=== PATIENT | male | born 1940 | race Caucasian/White ===

== ENCOUNTER 2017-05-27 08:48 | Day surgery (SDC) | payer MEDICARE, BC ==
[~2017-05-27] VITALS: Ht 182.9 cm; Wt 100.0 kg
[2017-05-27] MEDS ORDERED: NORVASC5 MG PO (10:42)
[2017-05-27 10:45] LABS: BASOPHILS 0.8 % (0-2); EOSINOPHILS 0 % (0-7); HEMATOCRIT 34.7 % (42.0-54.0); HEMOGLOBIN 11.8 g/dL (13.5-17.5); IMMATURE GRANULOCYTES 0.2 % (0-5); LYMPHOCYTES 32.8 % (15-50); MCH 29.6 pg (26.0-34.0); MEAN PLATELET VOLUME 8.8 fL (7.4-10.4); MONOCYTES 11.1 % (2-11); NEUTROPHILS 55.1 % (40-80); PLATELET COUNT 173 10x3/uL (130-400); RBC 3.99 10x6/uL (4.20-6.10); RDW 13.1 % (11.5-14.5); WBC 4.9 10x3/uL (4.8-10.8)
[2017-05-27 10:53] VITALS: BP 158/83; Ht 182.9 cm; Wt 100.0 kg
[2017-05-27 10:55] LABS: APTT 31.1 SECONDS (22.8-39.4); INR 1.05 (0.85-1.17); PROTIME 13.3 SECONDS (11.6-15.0)
[2017-05-27 12:03] LABS: ANION GAP 13.7 mmol/L (8-16); CALCIUM 9.4 mg/dL (8.5-10.1); CARBON DIOXIDE 24.1 mmol/L (21.0-32.0); CREATININE - SERUM 3.9 mg/dL (0.6-1.3); POTASSIUM - SERUM 4.8 mmol/L (3.5-5.1)
[2017-05-27] MEDS ORDERED: HYDROCODON-ACE1 EAC7 PO (13:20)
--- NOTE | 2017-05-27 14:05 | NUR ---
PATIENT SITS UP ON SIDE OF BED AND WALKS AROUND ROOM WITH NURSE STANDING BY. PATIENT DENIES DIZZINESS. PATIENT SITS BACK DOWN ON SIDE OF BED AND STATES WANTS TO SIT FOR A WHILE. RIGHT HAND PIV DC'D WITH TIP INTACT. THIS NURSE URGES PATIENT TO CALL FOR ASSISTANCE WHEN READY TO GET DRESSED. EDUCATION GIVEN ABOUT NEED TO KEEP SLING ON ARM AT ALL TIMES DUE TO NERVE BLOCK. STATES UNDERSTANDING.
--- NOTE | 2017-05-27 14:15 | NUR ---
THIS NURSE ENTERS ROOM AND PATIENT IS STANDING BY BED AND TRYING TO GET DRESSED. HAS LEFT ARM SLING OFF, TRYING TO GET SHIRT ON. THIS NURSE IMMEDIATELY SUPPORTS LEFT ARM AND ASSISTS PATIENT IN PUTTING SLING BACK ON. ASSISTED PATIENT TO GET CLOTHES ON OVER THE SLING. PATIENT SITTING IN CHAIR IN ROOM. AWAITING EX- TO ARRIVE TO PROVIDE DC TRANSPORTATION
--- NOTE | 2017-05-27 14:45 | NUR ---
PATIENT SITTING IN CHAIR IN ROOM, AWAKE, ALERT, DENIES COMPLAINTS. AWAITING EX- TO ARRIVE TO PROVIDE TRANSPORTATION HOME
--- NOTE | 2017-05-27 15:07 | NUR ---
DISCHARGED HOME VIA WHEELCHAIR TO PRIVATE VEHICLE WITH EX-
--- NOTE | 2017-06-20 15:11 | OP ---
PATIENT NAME: BRAD PINEDO MEDICAL RECORD: [id number] :40 [facility] DATE: SURGEON: ARCHIE VANEGAS MD DATE OF OPERATION: 05/27/2017 REFERRED BY: Bhavani uD MD PREOPERATIVE DIAGNOSIS: Chronic kidney disease stage IV. POSTOPERATIVE DIAGNOSIS: Chronic kidney disease stage IV. OPERATION PERFORMED: Creation of a left wrist Madelaine type radiocephalic arteriovenous fistula. SURGEON: Archie Vanegas MD ANESTHESIA: Regional nerve block plus TIVA, per CLAY BURNER. PREOPERATIVE NOTE: Mr. Pinedo is a 77-year-old white male from [place] who has chronic kidney disease and is anticipated he may need to begin dialysis in the next year. He was referred to me for dialysis access and I brought him to the OR today as an outpatient to create a fistula in the left arm. He has good veins and large vessels on ultrasound, I believe he is a good candidate for radiocephalic fistula. DESCRIPTION OF PROCEDURE: With the patient under anesthesia in supine position, he was prepped and draped in sterile manner. Topical nitroglycerin ointment was applied to the left arm and forearm, and a [place] drain was used as a proximal venous tourniquet. I examined him with duplex ultrasound and confirmed the cephalic vein to be patent from the wrist to the deltopectoral groove. I then made a longitudinal incision along the wrist and exposed the vein and artery. The vein was dissected from the surrounding tissues and treated with topical papaverine. It was dilated hydrostatically and closed distally with a clip, divided and beveled and flushed with heparinized saline and generally prepared for anastomosis. The artery was large, about 6 mm in diameter, perhaps 7. It was controlled with doubly looped Silastic tapes. It was occluded and an arteriotomy made through which heparinized saline was injected proximally and distally and an end-to-side of vein to artery anastomosis was then performed with running 6-0 Prolene. When completed and the occluding loops were loosened, excellent flow developed immediately in the new fistula and the suture line proved to be hemostatic. Excellent flow was established in the fistula. There was a good strong palpable thrill and good Doppler flow signals. The wound was irrigated with Ancef and gentamicin solution, was infiltrated with 0.25% Marcaine without epinephrine. I did use some Fibrillar to help achieve hemostasis under the flaps and I did note during the procedure, the patient had a little oozing tendency. Discrete electrocautery was used to achieve hemostasis during the procedure. The wound was closed with interrupted 3-0 Vicryl inverted sutures. The skin was closed with running intracuticular 4-0 Monocryl and Dermabond glue. The incision was dressed with Maxorb Ag, Tegaderm and Cavilon skin prep. He was awakened and taken to the recovery room with a good thrill and pulsation and audible bruit over his fistula. PLAN: I will plan for him to go home today. He will return to see me in first week of June, which is a little longer than I usually would wait to see a postop patient, but we are in the holiday season, Boy as next week, etc. OPERATIVE REPORT [id number] BRAD PINEDO I have given him my personal cell number, he can call me if he has any problems or concerns or questions between now and his appointment time. I am encouraging him to remove his own dressing this weekend or first of next week and after that to wash the incision site daily with soap and water. He is to resume his usual home diet and medications and activities as tolerated. During the procedure, there was no blood loss. All sponges, instruments and needles were accounted for. No specimen was submitted for histopathology and no drain was used. TRANSINT:[id number] Voice Confirmation ID: [id number] DOCUMENT ID: [id number] ARCHIE VANEGAS MD at 1511 CC: BHAVANI DU MD [id number] DICTATION DATE: 05/27/17 1332 JUNIOR ACCOUNTANT BOOKKEEPER: 05/27/17 1428 [facility] 05/27/17 [facility] [address] [place] [address]
== END 2017-05-27 15:07 | disposition home or self-care (01) ==
LOC: D.OPS 08:48
PROVIDERS: Surgery
DX: I12.9 Hypertensive chronic kidney disease with stage 1 through stage 4 chronic kidney disease, or unspecified chronic kidney disease (principal); N18.4 Chronic kidney disease, stage 4 (severe); Z01.812 Encounter for preprocedural laboratory examination

== ENCOUNTER → 2019-06-24 10:46 | Outpatient (CLI) | payer MEDICARE, BC ==
[2017-05-27 10:53] VITALS: BMI 29.9
--- NOTE | ~2019-06-24 | EC ---
PATIENT:BRAD PINEDO DATE OF SERVICE: 06/24/19 SEX: M MEDICAL RECORD: [id number] DATE OF : 40 LOCATION:[facility] AGE OF PATIENT: 79 ADMISSION DATE: 06/24/19 REFERRING PHYSICIAN: INTERPRETING PHYSICIAN: MALLY MARTINEZ MD ECHOCARDIOGRAM REPORT ECHO CHARGES 4 ECHO COMPLETE Date: 06/24/19 CLINICAL DIAGNOSIS: CAD/ANGINA/DYSPNEA/HTN ECHOCARDIOGRAPHIC MEASUREMENTS (adult normal given) AC root (d.<3.7cm) 3.6 cm LV Septum d (<1.2 cm> 1.5 cm Valve Excursion 1.7 cm LV Septum (systole) 1.2 cm Left Atria (s.<4.0cm> 3.6 cm LVPW d(<1.2cm) 1.6 cm RV (d.<2.3cm) 4.3 cm LVPW (sytole) 1.87 cm LV diastole(<5.6CM) 4.8 cm MV E-F(>70mm/sec) cm LV systole 2.8 cm LVOT Diameter 1.9 cm MV exc.(>10mm) 1.3 cm Est.ejection fraction (50-75%) % DOPPLER: LVIT cm/sec A 101.0cm/sec E 80.0 cm/sec LA cm/sec RVSP 36 mmHg LVOT 106 cm/sec AOP1/2T m/s Asc. Ao 130 cm/sec RVOT 98 cm/sec RA cm/sec PA 112 cm/sec AV Gradient Peak 6.72 mmHg AV Mean 3.60 mmHg AV Area 2.0 cm MV Gradient Peak 4.45 mmHg MV Mean 1.89 mmHg MV Area cm COMMENTS: Marketing Information Coordinator: Heather FUENTES Rn Complex Care: 1 Dr. Martinez TAPE# PACS Pericardial Effusion N DATE OF SERVICE: 06/24/2019 FINDINGS: 1. Left ventricular chamber size is within normal limits. Left ventricular systolic function is normal. Overall ejection fraction estimated at 50% to 55%. 2. Left atrium is within normal limits at 3.6 cm. Right atrium and right ventricular chamber sizes are mildly dilated. 3. Valvular structures have normal structure and motion. 4. Doppler interrogation reveals mild aortic insufficiency, mild mitral regurgitation, mild tricuspid regurgitation, no other valvular insufficiency or ECHOCARDIOGRAM REPORT [id number] BRAD PINEDO stenosis. Pulmonary systolic pressure estimated 36 mmHg. 5. No evidence of pericardial effusion or left ventricular thrombus. TRANSINT:[id number] Voice Confirmation ID: [id number] DOCUMENT ID: [id number] MALLY MARTINEZ MD CC: [id number] DICTATION DATE: 06/28/191650 BUSINESS ANALYST PROJECT MANAGER: 06/28/192146 DEP CLI 06/24/19 [place] [id number] [place] [id number]
[~2019-06-24 10:46] MED LIST: HYDROCODON-ACE1 EAC7 PO; NORVASC5 MG PO
== END | disposition home or self-care (01) ==
LOC: D.HCCECHO 10:46
PROVIDERS: ATTEND Internal Medicine Cardiovascular Disease
DX: I25.10 Atherosclerotic heart disease of native coronary artery without angina pectoris (principal); I20.9 Angina pectoris, unspecified

== ENCOUNTER 2019-07-07 09:02 | Inpatient (IN) | payer MEDICARE, BC ==
[~2019-07-07] VITALS: Ht 180.3 cm; Wt 90.9 kg
--- NOTE | ~2019-07-07 | DS ---
PATIENT:BRAD PINEDO :40 MEDICAL RECORD: [id number] DISCHARGE SUMMARY ADMISSION DATE: 07/08/19 DISCHARGE DATE: 07/09/19 DATE OF SERVICE: 07/09/2019 DIAGNOSES: 1. Unstable angina. 2. Coronary artery disease. 3. PTCA stent left circumflex and right coronary artery this admission with concomitant disease of left anterior descending. 4. Hypertension. 5. Hyperlipidemia. 6. Renal insufficiency. HOSPITAL COURSE: Mr. Pinedo presents with unstable angina, non-Q-wave myocardial infarction, found to have severe 3-vessel coronary artery disease, underwent PTCA stent of the left circumflex and RCA. He was discharged home with the addition of aspirin and Plavix to his medical regimen. We will follow up with [facility] for PTCA stent of the LAD in the near future due to untreated hyperlipidemia, also sent home with Pravachol. TRANSINT:[id number] Voice Confirmation ID: [id number] DOCUMENT ID: [id number] MALLY THORNTON MD CC: [id number] DICTATION DATE: 07/09/19 1359 BI MANAGER: 07/10/19 0153 DIS IN 07/09/[address] [facility] [address] [place] [address]
--- NOTE | ~2019-07-07 | HEMODYNAMI ---
PATIENT:BRAD PINEDO MEDICAL RECORD: [id number] : 40 [address] [id number] ADMISSION DATE: 07/07/19 Generatedon:07/08/201912:57 Patient name: BRAD PINEDO Patient #: [id number] SSN: [id number] : 1940 Date of study: 07/08/2019 Page: Of Hemodynamic Procedure Report Patient Data Patient Demographics Procedure consent was obtained First Name: BRAD Gender: Male Last Name: KHRIS : 1940 Patient #: [id number] Age: 79 year(s) Race: Unknown SSN: [id number] Additional ID: [id number] Contact details Address: [address] [place] [address] State: [place] City: [place] Zip code: [address] Admission Admission Data Admission Date: 07/07/2019 Admission Time: 9:02 Arrival Date: 07/07/2019 Arrival Time: 0:00 Admit Source: Other Insurance Payor: Medicare, Room #: D.2122 Private health insurance [facility] #: [id number] Height (in.): 61 BSA: 1.89 (m2) Height (cm.): 154.94 BMI: 37.79 (kg/m2) Weight (lbs.): 200 Weight (kg.): 90.72 Lab Results Lab Result Date: 07/07/2019 Lab Result Time: 0:00 Biochemistry Name Units Result Min Max BUN mg/dl 53 --(----)-* 7 18 Creatinine mg/dl 7 --(----)-* 0.6 1.3 eGFR ml/min [id number] *-(----)-- 90 120 NONAFRICAN CBC Name Units Result Min Max Hemoglobin g/dl 9.9 *-(----)-- 13.5 17.5 Procedure Procedure Types Cath Procedure Diagnostic Procedure Sedation Charges Moderate Sedation up to 15 minutes PCI Procedure Coronary Stent Coronary Stent Initial Hemochron ACT Test Procedure Description Procedure Date Procedure Date: 07/08/2019 Procedure Start Time: 12:37 Procedure End Time: 12:52 Procedure Staff Name Function Tyron Martinez MD Performing Physician Fide Xavier RT Scrub Itz Nix RN Nurse Zahraa Jean RT Monitor Procedure Data Cath Procedure Fluoroscopy Diagnostic fluoroscopy Total fluoroscopy Time: 4.9 time: 4.9 min min Diagnostic fluoroscopy Total fluoroscopy dose: 648 dose: 648 mGy mGy Contrast Material Contrast Material Type Amount (ml) Isovue 300 70 Entry Location Entry Primary Successful Side Size Upsize Upsize Entry Closure Succes sful Closure Location (Fr) 1 (Fr) 2 (Fr) Remarks Device Remarks Femoral Right 7 Fr Exoseal artery Short Estimated blood loss: 5 ml Procedure Complications No complications Procedure Medications Medication Administration Route Dosage Oxygen etCO2 Nasal cannula 2 l/min Heparin Flush Bag added to field 2 bags (1000units/500ml NS) 0.9% NaCl I.V. 100 ml/hr Lidocaine 2% added to field 20 Fentanyl I.V. 50 mcg Versed I.V. 1 mg Heparin Bolus I.V. 4000 units Fentanyl I.V. 50 mcg Versed I.V. 1 mg Hemodynamics Rest BSA: 1.89 (m2) HGB: 9.9 (g/dl) O2 Consumption: Estimated: 220.92 (ml/min) O2 Con sumption indexed: Estimated:116.89 (ml/min/m) Heart Rate: 77 (bpm) Snapshots Pre Cath Intra NCS Post Cath Vital Signs Time Heart Resp SPO2 etCO2 NIBP (mmHg) Rhythm Pain Sedation Rate (ipm) (%) (mmHg) Status Level (bpm) 12:17:48 70 16 100 18.8 176/91(145) NSR 0 (11) 10(A) , No pain 12:22:47 62 16 100 20.3 Measuring NSR 0 (11) 10(A) , No pain 12:23:22 61 16 88 0 161/82(115) NSR 0 (11) 10(A) , No pain 12:27:35 65 16 96 1.5 161/90(114) NSR 0 (11) 10(A) , No pain 12:31:54 66 17 98 0 162/81(97) NSR 0 (11) 10(A) , No pain 12:36:12 65 16 90 0 159/80(114) NSR 0 (11) 9(A) , No pain 12:40:30 65 16 98 0 169/79(143) NSR 0 (11) 9(A) , No pain 12:44:52 66 16 98 29.3 159/81(124) NSR 0 (11) 9(A) , No pain 12:49:10 69 16 97 21.8 177/86(150) NSR 0 (11) 9(A) , No pain Medications Time Medication Route Dose Verified Delivered Reason Notes Effectiveness by by 12:17:43 Oxygen etCO2 2 Tyron Itz Per physician Nasal l/min Juan Nix RN cannula 12:17:51 Heparin Flush added 2 Tyron Itz used for Bag to bags Juan Nix RN procedure (1000units/500ml field NS) 12:18:02 0.9% NaCl I.V. 100 Tyron Itz Per physician ml/hr Juan Nix RN 12:18:10 Lidocaine 2% added 20ml Tyron Mobley for local to vial Juan Nix RN anesthetic field 12:34:21 Fentanyl I.V. 50 Tyron Itz for sedation mcg Juan Nix RN 12:34:28 Versed I.V. 1 mg Tyron Itz for sedation Juan Nix RN 12:38:37 Heparin Bolus I.V. 4000 Tyron Itz for units Juan Nix RN anticoagulation 12:39:12 Fentanyl I.V. 50 Tyron Itz for sedation mcg Juan Nix RN 12:39:16 Versed I.V. 1 mg Tyron Itz for sedation Juan Nix RN Procedure Log Time Note 11:43:55 Patient Height : 61 inches 11:43:55 Patient Weight : 200 lbs 11:45:31 Diagnostic Cath Status : Urgent 11:45:45 Fide Xavier RT(R) sent for patient. Start room use. 11:47:53 Risk of Mortality: 1.0 11:47:57 Risk of blood transfusion: 6.7 11:48:00 Risk of EZIO: 7.5 11:48:07 Lab results completed and on chart. 11:48:10 Stress Test: no; N/A ? 11:48:28 H&P Date Dictated: 07/08/2019 Within 30 days and on chart.. 12:09:04 Time tracking: Regular hours (M-F 7:00 - 5:00) 12:09:08 Plan of Care:Hemodynamics will remain stable., Cardiac rhythm will remain stable., Comfort level will be maintained., Respiratory function will remain adequate., Patient/ family verbilizes understanding of procedure., Procedure tolerated without complication., Recovers from procedure without complications.. 12::17 Patient received from PCU to CCL 2 Alert and oriented. Tansferred to table in Supine position. 12::20 Signed procedure consent form obtained from patient. 12::20 Warm blankets applied, and aureliano hugger turned on for patient comfort. 12:: Correct patient and procedure confirmed by team. 12:: ECG and BP/O2 sat monitors applied to patient. 12:16:41 Vital chart was started 12:16:42 Baseline sample Acquired. 12:16:46 Rhythm: sinus rhythm 12:17:34 Pre-procedure instructions explained to patient. 12:17:34 Pre-op teaching completed and patient verbalized understanding. 12:17:36 Family in patients room. 12:17:39 Patient NPO since Midnight. 12:17:41 Is the patient allergic to Iodine/contrast media? No. 12:17:42 Was the patient premedicated? Yes 12:17:43 Oxygen 2 l/min etCO2 Nasal cannula was administered by Itz Nix RN; Per physician; Verbal order read back and verified. 12:17:43 Is patient on blood thinner?Yes 12:17:46 ACC The patient was administered the following blood thiners within the last 24 hours: ACCPlavix 12:17:48 Patient diabetic? No. 12:17:51 Heparin Flush Bag (1000units/500ml NS) 2 bags added to field was administered by Itz Nix RN; used for procedure; Verbal order read back and verified. 12:17:52 Previous problem with sedation/anesthesia? No ? 12:17:54 Snore? Yes 12:17:55 Sleep apnea? No 12:18:01 Deviated septum? No 12:18:01 Opens mouth fully? Yes 12:18:02 0.9% NaCl 100 ml/hr I.V. was administered by Itz Nix RN; Per physician; Verbal order read back and verified. 12:18:03 Sticks out tongue? Yes 12:18:06 Airway obstruction? No ? 12:18:09 Dentures? No ? 12:18:10 Lidocaine 2% 20ml vial added to field was administered by Itz Nix RN; for local anesthetic; Verbal order read back and verified. 12:18:12 Pre procedure: right dorsailis pedis pulse 2+ Normal; easily identifiable; not easily obliterated 12:18:16 Pre procedure: left dorsailis pedis pulse 2+ Normal; easily identifiable; not easily obliterated 12:18:18 Patient pain scale 0/10 ?. 12:18:29 IV patent on arrival in right forearm with 0.9% NaCl at [facility]. 12:18:34 Right groin area was prepped with chlora-prep and draped in sterile fashion 12:18:54 Alarms reviewed by R. N. 12:18:54 Sharps counted by scrub and verified by R.N. 12:32:28 Zero performed for pressure channel P1 12:34:19 Physician arrived 12::19 --------ALL STOP TIME OUT------ 12:34:20 Final Timeout: patient, procedure, and site verified with staff and physician. All members of the team are in agreement. 12:34:21 Fentanyl 50 mcg I.V. was administered by Itz Nix RN; for sedation; Verbal order read back and verified. 12:34:22 Right groin site verified by team. 12:34:26 Fire Safety Assessment: A--An alcohol-based skin anteseptic being used preoperatively., C--Open oxygen or nitrous oxide is being used., D--An ESU, laser, or fiber-optic light is being used. 12:34:28 Versed 1 mg I.V. was administered by Itz Nix RN; for sedation; Verbal order read back and verified. 12:34:31 Physical assessment completed. ASA score P 2 - A patient with mild systemic disease as per Tyron Martinez MD. 12:34:44 5) <15 or on dialysis Very severe, or end stage kidney failure. 12:34:47 Maximum allowable contrast dose (3.7 X eGFR X 0.75)22 ml. 12:34:51 Sedation plan: IV Moderate Sedation Medication:Versed, Fentanyl 12:35:35 Use device set Acist 12:35:36 ACIST Syringe (92043) opened to sterile field. 12:35:37 ACIST Hand Control (96270) opened to sterile field. 12:35:37 ACIST Manifold (54602) opened to sterile field. 12:35:59 GUIDE 7FR AR 1.0 SH catheter ([id number]) opened to sterile field. 12:36:01 Asahi Minamo 190cm wire opened to sterile field. 12:36:02 SHEATH 7FR Greenfield (XVT465) opened to sterile field. 12:36:03 INFLATOR Merit BasixCompak (LK2460) opened to sterile field. 12:37:16 Procedure started. 12:37:16 Full Disclosure recording started 12:37:19 Local anesthetic to right femoral artery with Lidocaine 2% by Tyron Martinez MD.INITIAL ACCESS ONLY 12:37:48 A 7 Fr Short sheath was inserted into the Right Femoral artery 12:37:59 7 Fr ar 1 sh guide catheter was inserted over the wire 12:38:27 minamo wire advanced. 12:38:37 Heparin Bolus 4000 units I.V. was administered by Itz Nix RN; for anticoagulation; Verbal order read back and verified. 12:39:12 Fentanyl 50 mcg I.V. was administered by Itz Nix RN; for sedation; Verbal order read back and verified. 12:39:16 Versed 1 mg I.V. was administered by Itz Nix RN; for sedation; Verbal order read back and verified. 12:39:51 ACC Pre-intervention ROGELIO Flow is 3. 12:39:59 Pre PCI Site: [place] mRCA has 90% stenosis. 12:41:16 Inflate balloon Inflation number: 1 A EUPHORA 3.5 x 15 Balloon ([id number]) was prepped and advanced across the Dist RCA 90, then inflated to 13 UMER for 0:10 (min:sec) 0. 12:41:38 Inflation number: 2 The EUPHORA 3.5 x 15 Balloon ([id number]) was reinflated across the Dist RCA 0, to 13 UMER for 0:10 (min:sec) . 12:41:56 Inflation number: 1 The EUPHORA 3.5 x 15 Balloon ([id number]) was reinflated across the Prox RCA 90, to 17 UMER for 0:10 (min:sec) 0. 12:42:18 Inflation number: 2 The EUPHORA 3.5 x 15 Balloon ([id number]) was reinflated across the Prox RCA 0, to 13 UMER for 0:10 (min:sec) . 12:44:16 Place stent Inflation Number: 3 A DORINDA RX 3.5 x 34 stent ([id number]) was prepped and advanced across the Dist RCA 90. The stent was deployed at 15 UMER for 0:10 (min:sec) 0. 12:44:59 Stent catheter was removed intact over wire. 12:45:36 Place stent Inflation Number: 1 A DORINDA RX 3.5 x 38 stent ([id number]) was prepped and advanced across the Mid RCA 90. The stent was deployed at 17 UMER for 0:10 (min:sec) . 12:46:17 Stent catheter was removed intact over wire. 12:47:40 Place stent Inflation Number: 3 A DORINDA RX 3.5 x 26 stent ([id number]) was prepped and advanced across the Prox RCA 90. The stent was deployed at 17 UMER for 0:10 (min:sec) 0. 12:48:52 Stent catheter was removed intact over wire. 12:48:53 Wire removed. 12:48:53 Guide catheter removed. 12:49:10 EXOSEAL 7Fr (EX700) opened to sterile field. 12:49:21 Sheath removed intact; hemostasis achieved with Exoseal to the Right Femoral artery. 12:49:22 Procedure ended.(Physican Out) 12:50:27 ACT drawn and resulted at 194 seconds. (normal therapeutic range 180-240 seconds). 12:50:40 Fluoroscopy time 04.90 minutes. 12:50:49 Flurop Dose total: 648 12:50:49 Fluoroscopy dose: 648 mGy 12:50:54 Dose Area Product 32224 mGy/cm. 12:51:02 Contrast amount:Isovue 300 70ml. 12:51:09 Maximum allowable dose exceeded? Yes. 12:51:15 Sharps counted by scrub and verified by R.N. 12:51:16 Insertion/operative site no bleeding no hematoma. 12:51:19 Post-op/insertion site Right Femoral artery dressed using a 4 x 4 and Tegaderm. 12:51:20 Post Procedure Pulses reassessed and unchanged 12:51:23 Post procedure rhythm: unchanged. 12:51:26 Estimated blood loss: 5 ml 12:51:27 Post procedure instruction explained to patient.Patient verbalizes understanding. 12:51:28 Patient needs reinforcement of post procedure teaching. 12:52:08 Procedure type changed to Cath procedure, Diagnostic procedure, Sedation Charges, Moderate Sedation up to 15 minutes, PCI procedure, Coronary Stent, Coronary Stent Initial, Hemochron ACT Test 12:52:10 Procedure and supply charges have been captured, reviewed, submitted and are correct. 12:52:14 Procedure Complication : No complications 12:52:16 Vital chart was stopped 12:52:19 Operative report dictated upon procedure completion. 12:52:20 See physician's report for complete and final results. 12:52:22 Report given to [facility] II. 12:52:25 Patient transfered to Med II with Stretcher. 12:52:28 Procedure ended. 12:52:28 Full Disclosure recording stopped 12:52:39 ACC-PCI Only Patient was given prescriptions, or instructed by Tyron Martinez MD to start/continue the following medications upon discharge: Plavix 12:52:41 End room use (Document Last) 12:56:37 End room use (Document Last) 12:57:07 End room use (Document Last) Intervention Summary Intervention Notes Time ActionType Lesion and Equipment Used Action# Pressure Duration Attributes 12:41:16 Inflate Dist RCA EUPHORA 3.5 x 1 13 00:10 balloon 15 Balloon ([id number]) 12:41:38 Reinflate Dist RCA EUPHORA 3.5 x 2 13 00:10 balloon 15 Balloon ([id number]) 12:41:56 Reinflate Prox RCA EUPHORA 3.5 x 1 17 00:10 balloon 15 Balloon ([id number]) 12:42:18 Reinflate Prox RCA EUPHORA 3.5 x 2 13 00:10 balloon 15 Balloon ([id number]) 12:44:16 Place stent Dist RCA DORINDA RX 3.5 x 3 15 00:10 34 stent ([id number]) 12:45:36 Place stent Mid RCA DORINDA RX 3.5 x 1 17 00:10 38 stent ([id number]) 12:47:40 Place stent Prox RCA DORINDA RX 3.5 x 3 17 00:10 26 stent ([id number]) Device Usage Item Name Manufacture Quantity Catalog Hospital Part [facility] Lot# / Number Charge Number Stock Stock Serial# Code ACIST Syringe Acist 1 74204 402242 [id number] [id number] 20 (49634) Medical Systems Inc ACIST Hand Acist 1 70917 110313 457230 372773 5 Control Medical (27954) Systems Inc ACIST Manifold Acist 1 90787 241594 582081 263317 5 (22437) Medical Systems Inc GUIDE 7FR AR Medtronic 1 [id number] 842055 267815 942674 0 1.0 SH catheter ([id number]) [facility] Intecc 1 [id number] 602868 8978600 [id number] 0 190cm wire SHEATH 7FR Terumo 1 [id number] 005667 821019 086671 5 Greenfield ([id number]) INFLATOR Merit Merit 1 XV4384 649191 129763 085123 15 BasixCompak Medical (IO6529) EUPHORA 3.5 x Medtronic 1 [id number] 833370 920988 850394 5 [id number] 15 Balloon ([id number]) DORINDA RX 3.5 x Medtronic 1 [id number] 268757 1724490 969756 5 [id number] 34 stent ([id number]) DORINDA RX 3.5 x Medtronic 1 [id number] 476084 1139175 097223 5 [id number] 38 stent ([id number]) DORINDA RX 3.5 x Medtronic 1 [id number] 563668 7191054 219331 5 [id number] 26 stent ([id number]) EXOSEAL 7Fr Cardinal 1 EX700 167370 481474 607812 5 (EX700) Health Signature Audit [place] Stage Time Signature Unsigned Intra-Procedure 07/08/2019 Zahraa Jean 12:56:37 PM RT(R) Intra-Procedure 07/08/2019 Itz Nix 12:57:07 PM RN Intra-Procedure 07/08/2019 Tyron Martinez 12:57:41 PM MD Signatures Performing Physician : Signature : Tyron Martinez MD Date : Time : Nurse : Itz Nix RN Signature : Date : Time : Monitor : Zahraa Jean RT Signature : Date : Time : [facility] [address] [place] [address]
--- NOTE | ~2019-07-07 | HEMODYNAMI ---
PATIENT:BRAD PINEDO MEDICAL RECORD: [id number] : 40 LOCATION:[facility] ADMISSION DATE: 07/07/19 Generatedon:07/07/201913:11 Patient name: BRAD PINEDO Patient #: [id number] SSN: [id number] : 1940 Date of study: 07/07/2019 Page: Of Hemodynamic Procedure Report Patient Data Patient Demographics Procedure consent was obtained First Name: BRAD Gender: Male Last Name: KHRIS : 1940 Patient #: [id number] Age: 79 year(s) Race: Unknown SSN: [id number] Additional ID: [id number] Contact details [address]: [address] [place] [address] State: [place] City: [place] Zip code: [address] Admission Admission Data Admission Date: 07/07/2019 Admission Time: 9:02 Arrival Date: 07/07/2019 Arrival Time: 0:00 Admit Source: Other Insurance Payor: Medicare, Private health insurance [facility] #: [id number] Height (in.): 61 BSA: 1.89 (m2) Height (cm.): 154.94 BMI: 37.79 (kg/m2) Weight (lbs.): 200 Weight (kg.): 90.72 Lab Results Lab Result Date: 07/07/2019 Lab Result Time: 0:00 Biochemistry Name Units Result Min Max BUN mg/dl 53 --(----)-* 7 18 Creatinine mg/dl 7 --(----)-* 0.6 1.3 eGFR ml/min 7.185019 *-(----)-- 90 120 NONAFRICAN CBC Name Units Result Min Max Hemoglobin g/dl 9.9 *-(----)-- 13.5 17.5 Procedure Procedure Types Cath Procedure Diagnostic Procedure [facility] w/Coronaries Sedation Charges Moderate Sedation up to 15 minutes PCI Procedure Coronary Stent Coronary Stent Initial Hemochron ACT Test Procedure Description Procedure Date Procedure Date: 07/07/2019 Procedure Start Time: 12:52 Procedure Staff Name Function Tyron Martinez MD Performing Physician Zahraa Jean RT Monitor Baljeet Claros RN Nurse Citlali Delgado RT Scrub Procedure Data Cath Procedure Fluoroscopy Diagnostic fluoroscopy Total fluoroscopy Time: 3.2 time: 3.2 min min Diagnostic fluoroscopy Total fluoroscopy dose: 540 dose: 540 mGy mGy Contrast Material Contrast Material Type Amount (ml) Isovue 300 55 Entry Location Entry Primary Successful Side Size Upsize Upsize Entry Closure Succes sful Closure Location (Fr) 1 (Fr) 2 (Fr) Remarks Device Remarks Femoral Right 5 Fr 6 Fr Exoseal artery Short Estimated blood loss: 5 ml Diagnostic catheters Device Type Used For End Catheter Placement MULTIPACK Pigtail 5 Fr LV Angiography catheter MULTIPACK JL 4.0 5Fr Left Coronary catheter Angiography MULTIPACK 3DRC 5Fr Right Coronary catheter Angiography Procedure Medications Medication Administration Route Dosage 0.9% NaCl I.V. 100 ml/hr Oxygen etCO2 Nasal cannula 2 l/min Heparin Flush Bag added to field 2 bags (1000units/500ml NS) Lidocaine 2% added to field 20 Benadryl I.V. 50 mg Versed I.V. 1 mg Fentanyl I.V. 50 mcg Heparin Bolus I.V. 4000 units Integrilin (Bolus I.V. 7.9 ml 2mg/ml) Integrilin (Bolus wasted 2.1 ml 2mg/ml) Versed I.V. 1 mg Fentanyl I.V. 50 mcg Plavix P.O. 600 mg Hemodynamics Rest BSA: 1.89 (m2) HGB: 9.9 (g/dl) O2 Consumption: Estimated: 209.91 (ml/min) O2 Con sumption indexed: Estimated:111.06 (ml/min/m) Heart Rate: 61 (bpm) Pressure Samples Time Site Value (mmHg) Purpose Heart Use Rate(bpm) 12:53 LV 143/32,39 Snapshot 65 Snapshots Pre Cath Intra NCS Post Cath Vital Signs Time Heart Resp SPO2 etCO2 NIBP (mmHg) Rhythm Pain Sedation Rate (ipm) (%) (mmHg) Status Level (bpm) 12:42:00 55 20 92 9 183/81(107) NSR 0 (11) 10(A) , No pain 12:46:25 66 18 99 24 197/96(164) NSR 0 (11) 10(A) , No pain 12:50:57 65 19 98 0 182/83(104) NSR 0 (11) 10(A) , No pain 12:55:23 68 19 93 10.5 169/88(146) NSR 0 (11) 9(A) , No pain 12:59:45 69 19 99 18.7 182/82(147) NSR 0 (11) 9(A) , No pain 13:04:09 68 19 100 29.2 170/88(115) NSR 0 (11) 10(A) , No pain 13:08:28 65 10 100 28.5 187/92(145) NSR 0 (11) 10(A) , No pain Medications Time Medication Route Dose Verified Delivered Reason Notes Effectiveness by by 12:41:38 0.9% NaCl I.V. 100 Baljeet Baljeet Per physician ml/hr Harlan Claros RN RN 12:41:47 Oxygen etCO2 2 Baljeet Baljeet for low 02 sats Nasal l/min Harlan Claros cannula RN RN 12:41:56 Heparin Flush added 2 Baljeet Baljeet used for Bag to bags Harlan Claros procedure (1000units/500ml field PALMA RN NS) 12:42:06 Lidocaine 2% added 20ml Baljeet Baljeet for local to vial Harlan Claros anesthetic field PALMA RN 12:42:47 Benadryl I.V. 50 mg Baljeet Baljeet Per physician Harlan Claros RN RN 12:48:09 Versed I.V. 1 mg Baljeet Baljeet for sedation Harlan Claros RN RN 12:48:16 Fentanyl I.V. 50 Baljeet Baljeet for sedation mcg Harlan Claros RN RN 13:02:05 Heparin Bolus I.V. 4000 Baljeet Baljeet for units Harlan Claros anticoagulation RN RN 13:02:18 Integrilin I.V. 7.9 Baljeet Baljeet for (Bolus 2mg/ml) ml Harlan escobar RN RN therapy 13:02:27 Integrilin wasted 2.1ml Baljeet Baljeet to sharp's (Bolus 2mg/ml) Harlan Claros RN RN 13:02:37 Versed I.V. 1 mg Baljeet Baljeet for sedation Harlan Claros RN RN 13:02:43 Fentanyl I.V. 50 Baljeet Baljeet for sedation mcg Harlan Claros RN RN 13:07:54 Plavix P.O. 600 Baljeet Delong for mg Harlan Claros antiplatelet RN RN therapy Procedure Log Time Note 12:20:08 Procedure Status Elective Heart Cath (OP). 12:20:10 Zahraa Jean RT(R) sent for patient. Start room use. 12:20:17 Time tracking: Regular hours (M-F 7:00 - 5:00) 12:20:22 Plan of Care:Hemodynamics will remain stable., Cardiac rhythm will remain stable., Comfort level will be maintained., Respiratory function will remain adequate., Patient/ family verbilizes understanding of procedure., Procedure tolerated without complication., Recovers from procedure without complications.. 12:22:43 Arrival Date: 07/07/2019 12:00:00 AM 12:23:08 Admit Source: Other 12:23:14 Insurance Payor : Private health insurance, Medicare 12:23:26 Patient Height : 61 inches 12:23:34 Patient Weight : 200 lbs 12:29:02 Lab Result : eGFR NONAFRICAN 7.081912 ml/min 12:29:02 Lab Result : Creatinine 7 mg/dl 12:29:02 Lab Result : BUN 53 mg/dl 12:29:02 Lab Result : Hemoglobin 9.9 g/dl 12:29:10 Diagnostic Cath Status : Elective 12:38:59 Patient received from Pre/Post Procedure Room to CCL 2 Alert and oriented. Tansferred to table in Supine position. 12:39:02 Signed procedure consent form obtained from patient. 12:39:03 Warm blankets applied, and aureliano hugger turned on for patient comfort. 12:39:03 Correct patient and procedure confirmed by team. 12:39:03 ECG and BP/O2 sat monitors applied to patient. 12:40:48 Vital chart was started 12:40:49 Baseline sample Acquired. 12:40:53 Rhythm: sinus rhythm 12:40:55 Full Disclosure recording started 12:40:59 H&P Date Dictated: 07/07/2019 Within 30 days and on chart., H&P Addendum completed by physician on day of procedure. (MUST COMPLETE FOR ALL OUTPATIENTS). 12:41:00 Pre-procedure instructions explained to patient. 12:41:01 Pre-op teaching completed and patient verbalized understanding. 12:41:02 Family in waiting room. 12:41:03 Patient NPO since Midnight. 12:41:05 Is the patient allergic to Iodine/contrast media? No. 12:41:06 Was the patient premedicated? Yes 12:41:07 Is patient on blood thinner?No 12:41:10 Patient diabetic? No. 12:41:12 Previous problem with sedation/anesthesia? No ? 12:41:15 Snore? Yes 12:41:16 Sleep apnea? No 12:41:17 Deviated septum? No 12:41:18 Opens mouth fully? Yes 12:41:18 Sticks out tongue? Yes 12:41:20 Airway obstruction? No ? 12:41:24 Dentures? No ? 12:41:30 Pre procedure: right dorsailis pedis pulse 1+ Palpable, but thready & weak; easily obliterated 12:41:32 Pre procedure: left dorsailis pedis pulse 1+ Palpable, but thready & weak; easily obliterated 12:41:34 Patient pain scale 0/10 ?. 12:41:38 0.9% NaCl 100 ml/hr I.V. was administered by Baljeet Claros RN; Per physician; Verbal order read back and verified. 12:41:41 IV patent on arrival in left forearm with 0.9% NaCl at [facility]. 12:41:44 Lab results completed and on chart. 12:41:47 Oxygen 2 l/min etCO2 Nasal cannula was administered by Baljeet Claros RN; for low 02 sats; Verbal order read back and verified. 12:41:56 Heparin Flush Bag (1000units/500ml NS) 2 bags added to field was administered by Baljeet Claros RN; used for procedure; Verbal order read back and verified. 12:42:06 Lidocaine 2% 20ml vial added to field was administered by Baljeet Claros RN; for local anesthetic; Verbal order read back and verified. 12:42:45 Stress Test: yes; abnormal lateral 12:42:47 Benadryl 50 mg I.V. was administered by Baljeet Claros RN; Per physician; Verbal order read back and verified. 12:44:33 Risk of Mortality: 0.9 12:44:37 Risk of blood transfusion: 5.8 12:44:41 Risk of EZIO: 8.1 12:44:45 Right groin area was prepped with chlora-prep and draped in sterile fashion 12:44:46 Alarms reviewed by R. N. 12:44:47 Sharps counted by scrub and verified by R.N. 12:44:55 Physician arrived 12:44:55 --------ALL STOP TIME OUT------ 12:44:56 Final Timeout: patient, procedure, and site verified with staff and physician. All members of the team are in agreement. 12:44:58 Right groin site verified by team. 12:45:02 Fire Safety Assessment: A--An alcohol-based skin anteseptic being used preoperatively., C--Open oxygen or nitrous oxide is being used., D--An ESU, laser, or fiber-optic light is being used. 12:45:05 Physical assessment completed. ASA score P 2 - A patient with mild systemic disease as per Tyron Martinez MD. 12:45:10 5) <15 or on dialysis Very severe, or end stage kidney failure. 12:45:41 Maximum allowable contrast dose (3.7 X eGFR X 0.75)22 ml. 12:45:46 Sedation plan: IV Moderate Sedation Medication:Versed, Fentanyl 12:45:57 Use device set Femoral Dx 12:45:58 ACIST Syringe (77798) opened to sterile field. 12:45:59 Bag Decanter (2002S) opened to sterile field. 12:45:59 Medline Cath Pack ([id number]) opened to sterile field. 12:46:00 ACIST Hand Control (43866) opened to sterile field. 12:46:01 ACIST Manifold (23540) opened to sterile field. 12:46:01 DIAGNOSTIC Multipack 5Fr catheter set ([id number]) opened to sterile field. 12:46:02 Tegaderm 4 x 4 (1626W) opened to sterile field. 12:46:03 SHEATH 5FR Branscomb (GCY108) opened to sterile field. 12:46:04 EMERALD Guide Wire (493-968) opened to sterile field. 12:48:09 Versed 1 mg I.V. was administered by Baljeet Claros RN; for sedation; Verbal order read back and verified. 12:48:16 Fentanyl 50 mcg I.V. was administered by Baljeet Lorigan RN; for sedation; Verbal order read back and verified. 12:48:56 Zero performed for pressure channel P1 12:52:45 Procedure started. 12:52:50 Local anesthetic to right femoral artery with Lidocaine 2% by Tyron Martinez MD.INITIAL ACCESS ONLY 12:53:24 A 5 Fr sheath was inserted into the Right Femoral artery 12:53:39 A MULTIPACK Pigtail 5 Fr catheter was advanced over the wire and used for LV Angiography. 12:54:14 LV hemodynamics recorded. 12:54:14 LV gram done using DE LOS SANTOS 12:54:17 Injector settings: Ml/sec: 5, Volume: 15, 12:54:22 EF : 30 % 12:54:24 Catheter removed. 12:54:30 A MULTIPACK JL 4.0 5Fr catheter was advanced over the wire and used for Left Coronary Angiography. 12:55:09 LCA angiography performed. 12:55:13 Injector settings: Ml/sec: 3, Volume: 6, 12:56:01 Catheter removed. 12:56:02 A MULTIPACK 3DRC 5Fr catheter was advanced over the wire and used for Right Coronary Angiography. 12:56:57 RCA angiography performed. 12:57:14 Injector settings: Ml/sec: 3, Volume: 6, 12:57:55 Catheter removed. 12:57:58 Proceeding to intervention. 12:59:03 CHOICE PT Extra Support 182cm wire ([id number]) opened to sterile field. 13:00:23 GUIDE 6FR XBLAD 3.5 catheter ([id number]) opened to sterile field. 13:00:33 Sheath upsized to a 6 Fr Short. 13:00:40 6 Fr xblad 3.5 guide catheter was inserted over the wire 13:00:46 Guide Catheter removed. unable to cannulate vessel. 13:00:58 GUIDE 6FR XB 4.0 catheter ([id number]) opened to sterile field. 13:01:10 6 Fr xb 4 guide catheter was inserted over the wire 13:01:16 choicept wire advanced. 13:02:05 Heparin Bolus 4000 units I.V. was administered by Baljeet Claros RN; for anticoagulation; Verbal order read back and verified. 13:02:18 Integrilin (Bolus 2mg/ml) 7.9 ml I.V. was administered by Baljeet Lorigan RN; for antiplatelet therapy; Verbal order read back and verified. 13:02:27 Integrilin (Bolus 2mg/ml) 2.1ml wasted was administered by Baljeet Claros RN; to sharp's; Verbal order read back and verified. 13:02:32 Inflate balloon Inflation number: 1 A EUPHORA 3.5 x 15 Balloon ([id number]) was prepped and advanced across the Mid CX 90, then inflated to 13 UMER for 0:10 (min:sec) 0. 13:02:37 Versed 1 mg I.V. was administered by Baljeet Claros RN; for sedation; Verbal order read back and verified. 13:02:40 Inflation number: 2 The EUPHORA 3.5 x 15 Balloon ([id number]) was reinflated across the Mid CX 0, to 13 UMER for 0:10 (min:sec) . 13:02:43 Fentanyl 50 mcg I.V. was administered by Baljeet Claros RN; for sedation; Verbal order read back and verified. 13:04:06 Place stent Inflation Number: 3 A DORINDA RX 3.5 x 38 stent ([id number]) was prepped and advanced across the Mid CX 90. The stent was deployed at 13 UMER for 0:10 (min:sec) 0. 13:04:31 Stent catheter was removed intact over wire. 13:04:31 Wire removed. 13:04:32 Guide catheter removed. 13:04:48 EXOSEAL 6Fr (EX600) opened to sterile field. 13:06:07 Sheath removed intact; hemostasis achieved with Exoseal to the Right Femoral artery. 13:06:08 Procedure ended.(Physican Out) 13:07:16 Fluoroscopy time 03.20 minutes. 13:07:20 Fluoroscopy dose: 540 mGy 13:07:20 Flurop Dose total: 540 13:07:31 Dose Area Product 589307 mGy/cm. 13:07:45 Contrast amount:Isovue 300 55ml. 13:07:49 Maximum allowable dose exceeded? Yes. 13:07:52 Insertion/operative site no bleeding no hematoma. 13:07:54 Plavix 600 mg P.O. was administered by Baljeet Claros RN; for antiplatelet therapy; Verbal order read back and verified. 13:07:55 Post-op/insertion site Right Femoral artery dressed using a 4 x 4 and Tegaderm. 13:07:59 Post procedure rhythm: unchanged. 13:08:04 Estimated blood loss: 5 ml 13:08:05 Post procedure instruction explained to patient.Patient verbalizes understanding. 13:08:05 Patient needs reinforcement of post procedure teaching. 13:09:32 Procedure type changed to Cath procedure, Diagnostic procedure, LHC, LHC w/Coronaries, Sedation Charges, Moderate Sedation up to 15 minutes, PCI procedure, Coronary Stent, Coronary Stent Initial, Hemochron ACT Test 13:09:37 ACT drawn and resulted at 198 seconds. (normal therapeutic range 180-240 seconds). 13:11:29 Vital chart was stopped Intervention Summary Intervention Notes Time ActionType Lesion and Equipment Used Action# Pressure Duration Attributes 13:02:32 Inflate Mid CX EUPHORA 3.5 x 1 13 00:10 balloon 15 Balloon ([id number]) 13:02:40 Reinflate Mid CX EUPHORA 3.5 x 2 13 00:10 balloon 15 Balloon ([id number]) 13:04:06 Place stent Mid CX DORINDA RX 3.5 x 3 13 00:10 38 stent ([id number]) Device Usage Item Name Manufacture Quantity Catalog Number Hospital Part Current M inimal Lot# / Charge Number Stock Stock Serial# Code ACIST Syringe Acist 1 [id number] 898596 635247 417037 2 0 (47102) Medical Systems Inc Bag Decanter Microtek 1 2001S 178721 89104 273521 5 () Medical Inc. Medline Cath Medline 1 [id number] 033509 66492 233982 5 Pack ([id number]) ACIST Hand Acist 1 15903 505749 441528 362062 5 Control Medical (57699) Systems Inc ACIST Manifold Acist 1 19945 916370 737676 488762 5 (31226) Medical Systems Inc DIAGNOSTIC Cardinal 1 [id number] 230015 12429 120618 3 0 Multipack 5Fr Health catheter set (ZY5822) Tegaderm 4 x 4 3M 1 1626W 765448 122939 186173 5 (1626W) SHEATH 5FR Terumo 1 ZEH451 885295 338982 182833 5 Branscomb (PIC630) EMERALD Guide Cardinal 1 502-455 511916 181826 138670 5 Wire (502-455) Health MULTIPACK Cardinal 1 246269 5 Pigtail 5 Fr Health catheter MULTIPACK JL Cardinal 1 328068 5 4.0 5Fr Health catheter MULTIPACK 3DRC Cardinal 1 227438 5 5Fr catheter Health CHOICE PT [place] 1 [id number] 954189 636308 611128 5 Extra Support Scientific 182cm wire ([id number]) GUIDE 6FR Cardinal 1 [id number] 068729 869394 339209 1 0 XBLAD 3.5 Health catheter (67337272) GUIDE 6FR XB Cardinal 1 93580469 918478 346642 601210 2 4.0 catheter Health (06774062) EUPHORA 3.5 x Medtronic 1 [id number] 476922 359038 438862 5 [id number] 15 Balloon ([id number]) DORINDA RX 3.5 x Medtronic 1 [id number] 664962 7103262 500291 5 [id number] 38 stent ([id number]) EXOSEAL 6Fr Cardinal 1 EX600 906002 406799 031046 1 0 (EX600) Health Signature Audit [place] Stage Time Signature Unsigned Intra-Procedure 07/07/2019 Zahraa Jean 1:10:48 PM RT(R) Intra-Procedure 07/07/2019 Baljeet 1:11:10 PM Harlan PALMA Intra-Procedure 07/07/2019 Tyron Martinez 1:11:27 PM Signatures Performing Physician : Signature : Tyron Martinez MD Date : Time : Monitor : Zahraa Jean RT Signature : Date : Time : Nurse : Baljeet Claros Signature : RN Date : Time : [facility] [address] [place] [address]
[2019-07-07] MEDS ORDERED: MULTI-DAY VITAM1 TAB PO (09:25)
[2019-07-07 09:37] VITALS: BP 186/89; BMI 27.7
[2019-07-07 09:49] LABS: BASOPHILS 0.5 % (0-2); EOSINOPHILS 5.8 % (0-7); HEMATOCRIT 29.3 % (42.0-54.0); HEMOGLOBIN 9.9 g/dL (13.5-17.5); IMMATURE GRANULOCYTES 0.2 % (0-5); LYMPHOCYTES 29.2 % (15-50); MCH 30.5 pg (26.0-34.0); MCHC 33.8 g/dL (31.0-37.0); MCV 90.2 fL (80.0-100.0); MEAN PLATELET VOLUME 8.6 fL (7.4-10.4); MONOCYTES 11.4 % (2-11); NEUTROPHILS 52.9 % (40-80); PLATELET COUNT 203 10x3/uL (130-400); RBC 3.25 10x6/uL (4.20-6.10); RDW 13.8 % (11.5-14.5); WBC 5.5 10x3/uL (4.8-10.8)
[2019-07-07 10:09] LABS: ANION GAP 16.6 mmol/L (8-16); CALCIUM 8.9 mg/dL (8.5-10.1); CARBON DIOXIDE 23.2 mmol/L (21.0-32.0); CHOL - HDL RATIO 4.5 ratio (2.3-4.9); LDL-HDL RATIO 2.6 ratio (1.5-3.5); POTASSIUM - SERUM 4.8 mmol/L (3.5-5.1)
--- NOTE | 2019-07-07 13:30 | NUR ---
REC TO ROOM VIA STRETCHER FROM TAN ROOM SUPERVISOR. MONITORING INITIATED. REC W FEMSTOP INFLATED TO 135-140MMHG TO R GROIN. SOFT AROUND FEMSTOP. RPPP. IVF VIA PUMP AT 250ML/HR PER ORDER. EX IN ROOM, DR THORNTON HAS BEEN TO SPEAK W HER. BP184/89, HR 64 NSR, RR 12, SAT 99% ON 2LNC. DROWSY BUT ROUSES EASILY TO VERBAL.
--- NOTE | 2019-07-07 14:00 | NUR ---
R GROIN CDI, SOFT AROUND FEMSTOP, PPP. NO S/S BLEEDING OR EXTENSION OF HEMATOMA.
--- NOTE | 2019-07-07 14:30 | NUR ---
R GROIN CDI WITH TEGADERM 4X4 UNDER FEMSTOP. PRESSURE DOWN TO 35/40. GROIN REMAINS SOFT AROUND FEMSTOP. RLE WARM AND PINK.
--- NOTE | 2019-07-07 14:45 | NUR ---
R GROIN SOFT AROUND FEM STOP. C/O DISCOMFORT, WIGGLING IN BED. CONTINUE TO REITERATE NEED TO LIE STILL AND RELAXED TO HELP PREVENT BLEEDING. CURRENTLY NO S/S BLEEDING OR EXTENSION OF HEMATOMA. EXWIFE AT BEDSIDE.
--- NOTE | 2019-07-07 15:00 | NUR ---
R GROIN REMAINS SOFT, CLEAN AND INTACT DRESSING UNDER FEMSTOP. NO S/S BLEEDING OR EXTENSION OF HEMATOMA. RLE WARM AND PINK. PPP. MOVING BOTH LEGS AND RAISING HEAD UP, C/O UNCOMFORTABLE. REITERATED NEED TO LIE STILL AND RELAXED. RAISED KNEES WITH STRETCHER FEATURE, PT STATES THAT HELPED.
--- NOTE | 2019-07-07 15:29 | NUR ---
FEMSTOP R GROIN WITH ALL PRESSURE RELEASED. NO S/S BLEEDING OR EXTENSION OF HEMATOMA. GROIN SOFT AROUND FEMSTOP. BP 158/95, SB 55, RR 11 AND SAT 96% ON RA.
--- NOTE | 2019-07-07 15:40 | NUR ---
FEMSTOP RELEASED AND REMOVED FROM R GROIN. GROIN IS SOFT, CDI, NO S/S BLEEDING OR EXTENSION OF HEMATOMA. PPP. BP 181/86, WILL GIVE CLONIDINE 0.1MG PER DR NORBERTO MELVIN. SB 55, PT SNORING. RR 11, SAT 96%.
--- NOTE | 2019-07-07 16:08 | NUR ---
R GROIN REMAINS SOFT, NO S/S BLEEDING OR EXTENSION OF HEMATOMA SINCE REMOVAL OF FEMSTOP. PPP. BP 180/85, CLONIDINE 0.1 GIVEN W SIP OF WATER. SB 59. AWAKE, C/O NEEDS TO GET UP TO URINATE. REITERATE CANNOT GET OUT OF BED FOR ANOTHER HOUR AND 20 MIN. BUT THAT IN 20 MINUTES I CAN SIT HIS HEAD UP. STATES HE DOESN'T THINK HE CAN URINATE IN BED IN THE URINAL.
--- NOTE | 2019-07-07 16:31 | NUR ---
R GROIN CDI, SOFT. NO S/S BLEEDING OR EXTENSION OF HEMATOMA. PPP. RAISED HOB TO PT COMFORT. DECLINES TO HAVE FOOD RIGHT NOW. HAS URINAL AND IS ATTEMPTING TO VOID.
--- NOTE | 2019-07-07 17:00 | NUR ---
R GROIN REMAINS SOFT, CDI. NO S/S BLEEDING OR EXTENSION OF HEMATOMA. ASSISTED TO SIT UP ON SIDE OF BED TO USE URINAL. VOIDED 250ML CLEAR PALE YELLOW URINE. STATES THAT IS ABOUT ALL HE DOES AT A TIME. ASSISTED BACK INTO BED, GROIN REMAINS SOFT AND NO S/S BLEEDING OR FURTHER HEMATOMA. SANDWICH AND JUICE PROVIDED.
--- NOTE | 2019-07-07 17:17 | NUR ---
IVF DECREASED TO KVO PER ORDER. RFA IV PATENT, CDI. BP 168/92, HR SR 70.
--- NOTE | 2019-07-07 17:30 | NUR ---
AWAITING BED ON FLOOR FOR TRANSFER. ANUSHA SANDWICH AND JUICE. R GROIN SOFT, CDI, NO S/S BLEEDING OR FURTHER HEMATOMA. BP 169/83, NSR 69, RR 20 SAT 98% RA.
--- NOTE | 2019-07-07 18:25 | NUR ---
RECEIVED PT TO ROOM 2121 VIA WHEELCHAIR, PT WAS ABLE TO AMBULATE FROM WHEELCHAIR TO BATHROOM AND BACK TO BED WITH STEADY GATE. RT GROIN DRESSSING CDI, NO S/S OF BLEEDING OR HEMATOMA. PT A/O X4, RESP EVEN AND NONLABORED ON RA. RT FA IV INFUSING 1/2NS AT 30CC/HR.
[2019-07-07 18:30] VITALS: BMI 27.9
[2019-07-07 20:00] VITALS: BP 141/59
[2019-07-08] VITALS: BP 153/77
[2019-07-08 04:00] VITALS: BP 164/86
--- NOTE | 2019-07-08 06:24 | NUR ---
I have reviewed this patient and I concur with the Shift Assessment completed by the Licensed Practical Nurse today this shift.
[2019-07-08 09:07] VITALS: Ht 180.3 cm; Wt 90.9 kg
[2019-07-08 09:08] VITALS: BP 155/73
[2019-07-08 09:47] LABS: BASOPHILS 0.6 % (0-2); EOSINOPHILS 4.6 % (0-7); HEMATOCRIT 25.5 % (42.0-54.0); HEMOGLOBIN 8.5 g/dL (13.5-17.5); IMMATURE GRANULOCYTES 0.2 % (0-5); LYMPHOCYTES 20.6 % (15-50); MCH 29.9 pg (26.0-34.0); MCHC 33.3 g/dL (31.0-37.0); MCV 89.8 fL (80.0-100.0); MEAN PLATELET VOLUME 8.6 fL (7.4-10.4); PLATELET COUNT 198 10x3/uL (130-400); RBC 2.84 10x6/uL (4.20-6.10); RDW 13.6 % (11.5-14.5); WBC 6.5 10x3/uL (4.8-10.8)
[2019-07-08 09:54] LABS: CALCIUM 8.4 mg/dL (8.5-10.1); CARBON DIOXIDE 22.3 mmol/L (21.0-32.0); CREATININE - SERUM 6.9 mg/dL (0.6-1.3); POTASSIUM - SERUM 5.3 mmol/L (3.5-5.1)
--- NOTE | 2019-07-08 11:46 | NUR ---
PREOP MEDICATIONS ADMININSTERED PER CUT AND PRINT MACHINE OPERATOR REQUEST. WILL CTM.
[2019-07-08 12:51] VITALS: BP 137/71
--- NOTE | 2019-07-08 12:54 | OP ---
PATIENT NAME: BRAD PINEDO MEDICAL RECORD: [id number] :40 LOCATION:D.M2 D.2121 ADMISSION DATE: SURGEON: MALLY THORNTON MD DATE OF OPERATION: 07/07/2019 PROCEDURES: 1. PTCA stent left circumflex. 2. Left heart catheterization. 3. Selective coronary angiography. 4. Left ventriculogram. INDICATION: Angina and coronary artery disease. PROCEDURE IN DETAIL: After informed consent was obtained and after a detailed description of risks, benefits as well as alternative therapies, the patient elected to proceed with angiogram and angioplasty. The right femoral area was prepped and draped in normal sterile fashion. Right femoral artery was cannulated via modified Seldinger technique with placement of 6-Japanese sheath. All catheters exchanged through this sheath. FINDINGS: The left ventriculogram was performed in standard 30-degree DE LOS SANTOS view, reveals global hypokinesis, ejection fraction estimated at 30%. SELECTIVE CORONARY ANGIOGRAPHY: 1. Left main is with no significant angiographic disease. 2. Left anterior descending has multiple areas of 80% to 90% stenosis. 3. The left circumflex has 95% stenosis times 2. 4. The right coronary has multiple areas of 80% to 90% stenosis. PTCA STENT OF THE LEFT CIRCUMFLEX: The stent used covering both areas of 95% stenosis was 3.5 x 38 mm Dinesh. Result was 0% residual stenosis. OVERALL IMPRESSION: Successful percutaneous transluminal coronary angioplasty stent of the left circumflex going from 95% initial stenosis to 0% residual. TRANSINT:[id number] Voice Confirmation ID: [id number] DOCUMENT ID: [id number] MALLY THORNTON MD at 1254 CC: [id number] DICTATION DATE: 07/07/19 1316 GREEN MEAT GRADER: 07/07/192058 [facility] [address] [place] [address]
--- NOTE | 2019-07-08 16:02 | NUR ---
BEGAN FIRST UNIT OF BLOOD. NEW PIV INITIATED TO THE RIGHT AC 20GA X1 ATTEMPT. PT TOLERATED WELL. FLUSHED WITH 10ML NS TO CONFIRM PATENCY. VSS AND WNL. WILL CTM.
[2019-07-08 16:40] VITALS: BP 164/78
--- NOTE | 2019-07-08 20:42 | NUR ---
EVENING ROUNDS COMPLETED. BP 208/84 CLONIDINE GIVEN. ALL OTHER VSS. AAOX4. DRESSING TO RIGHT GROIN C/D/I. NO S/S OF DISTRESS. PT DENIES ANY FURTHER NEEDS AT THIS TIME. WILL CPOC. CL WITHIN REACH.
[2019-07-09 00:45] VITALS: BP 148/65
[2019-07-09 04:48] VITALS: BP 139/58
--- NOTE | 2019-07-09 07:48 | NUR ---
REPORT RECEIVED. WILL CONTINUE WITH POC. PT CURRENTLY LYING ON RIGHT SIDE. CALL LIGHT W/I REACH. PT IS ASLEEP WITH EYES CLOSED AT THIS TIME. RR EVEN AND UNLABORED ON RA. R.UPPER ARM PIV SALINE LOCKED. NO S/S OF DISTRESS NOTED. WILL CTM.
[2019-07-09 09:18] VITALS: BP 189/81
[2019-07-09 09:40] LABS: ANION GAP 15.2 mmol/L (8-16); CREATININE - SERUM 7.1 mg/dL (0.6-1.3); POTASSIUM - SERUM 5.2 mmol/L (3.5-5.1)
--- NOTE | 2019-07-09 10:23 | OP ---
PATIENT NAME: BRAD PINEDO MEDICAL RECORD: [id number] :40 LOCATION:D.M2 D.2122 ADMISSION DATE:07/08/19 SURGEON: MALLY THORNTON MD DATE OF OPERATION: 07/08/2019 PROCEDURES: 1. PTCA stent RCA. 2. Selective coronary angiography. INDICATION: Angina and coronary artery disease. PROCEDURE IN DETAIL: After informed consent was obtained and after detailed description of risks, benefits as well as alternative therapies, the patient elected to proceed with angiogram and angioplasty. The right femoral area was prepped and draped in normal sterile fashion. Right femoral artery was cannulated via modified Seldinger technique with placement of 7-Croatian sheath. All catheters exchanged through this sheath. FINDINGS: The right coronary has multiple areas of 90+ percent stenosis addressed with a 3.5 x 38, 3.5 x 34, 3.5 x 26, all Dinesh stent. Result was 0% residual stenosis. OVERALL IMPRESSION: Successful percutaneous transluminal coronary angioplasty stent of the right coronary artery going from multiple areas of 95% initial stenosis to 0% residual. TRANSINT:[id number] Voice Confirmation ID: [id number] DOCUMENT ID: [id number] MALLY THORNTON MD at 1023 CC: [id number] DICTATION DATE: 07/08/19 1251 OFFSET PLATEMAKER: 07/08/19 1721 ADM IN [place] [id number] [place] [id number]
[2019-07-09] MEDS ORDERED: BAYER CHEWABLE81 MG PO (14:10)
[2019-07-09] MEDS ORDERED: PRAVACHOL40 MG PO (14:15)
[2019-07-09] MEDS ORDERED: PLAVIX75 MG PO (14:15)
--- NOTE | 2019-07-09 14:54 | MORECARE ---
CASE MANAGEMENT DISCHARGE SUMMARY PATIENT: BRAD PINEDO UNIT: [id number] ADM DATE: 07/08/19 AGE: 79 : 40 SEX: M ROOM/BED: D.2122 AUTHOR: ANTIONETTE LOPEZ PHYSICIAN: REFERRING PHYSICIAN: MALLY THORNTON MD DATE OF SERVICE: 07/09/19 Discharge Plan Patient Name: BRAD PINEDO Facility: [facility]:[place] : 1940 Planned Disposition: Home Anticipated Discharge Date: Discharge Date: Expected LOS: Initial Reviewer: [email or web address] Initial Review Date: 07/08/2019 Generated: 07/09/19 3:53 pm Comments DCP- Discharge Planning Updated by [email or web address]: Sachi Barnes on 07/09/19 1:[address] Patient Name: BRAD PINEDO Admission Status: Elective Accout number: [id number] Admission Date: 07-08-2019 : 1940 Admission Diagnosis: Attending: JESSIE THORNTON Current LOS: 1 Anticipated DC Date: Planned Disposition: Home Primary Insurance: MEDICARE A & B Discharge Planning Comments: CM MET WITH PATIENT AFTER OBTAINING VERBAL CONSENT. PATIENT PLANS TO DC TO HOME TODAY. STATES DOES NOT NEED HH, REHAB OR EQUIPMENT. CM TO FOLLOW AND ASSIST NEEDED. Enrollment Eligibility Representative: Sachi Barnes DCPIA - Discharge Planning Initial Assessment Updated by [email or web address]: Sachi Barnes on 07/09/19 2:43 pm * Is the patient Alert and Oriented? Yes * PCP [facility]US * Pharmacy [facility] * Preadmission Environment Home Alone * ADLs Independent * Equipment None * List name and contact numbers for known caregivers / representatives who currently or will assist patient after discharge: DIONISIO BRIGHT, * Community resources currently utilized None * Additional services required to return to the preadmission environment? No * Can the patient safely return to the preadmission environment? Yes * Has this patient been hospitalized within the prior 30 days at any hospital? No Coverage Notice Reviewer: [email or web address] Denise Barnes Notice Issued Date-Time: 07/08/2019 10:14 Notice Type: Medicare Outpatient Observation Notice Notice Delivered To: Patient Relationship to Patient: Canvas Shrinker Name: Delivery Method: HAND - Hand Delivered Ariela Days: Prior Verbal Notification: Recipient Understood Notice: Yes Recipient Signature: Yes Med Rec Note Co-signed by Attending: Coverage Notice Comment: Reviewer: [email or web address] Denise Barnes Notice Issued Date-Time: 07/09/2019 14:40 Notice Type: IM Discharge Notice Notice Delivered To: Patient Relationship to Patient: Canvas Shrinker Name: Delivery Method: HAND - Hand Delivered Ariela Days: Prior Verbal Notification: Recipient Understood Notice: Yes Recipient Signature: Yes Med Rec Note Co-signed by Attending: Coverage Notice Comment: Patient Name: BRAD PINEDO Page [id number] at 1454 All edits/amendments must be made on the electronic document DICTATION DATE: 07/09/19 145 BRAZER ELECTRONIC: JASMINE 07/09/19 145 RPT#: [id number] DC DATE: STATUS: ADM IN [facility] [address] [place] [address] END OF REPORT
--- NOTE | 2019-07-09 15:43 | NUR ---
PT DISCHARGED HOME VIA WHEELCHAIR. TELEMETRY REMOVED AND RETURNED. PT SIGNED PROPER DISCHARGE INSTRUCTIONS AND REMOVED ALL VALUABLES FROM THE ROOM. PIV REMOVED WITH CATHETER TIP FULLY INTACT.
--- NOTE | 2019-07-10 15:53 | MORECARE ---
CASE MANAGEMENT DISCHARGE SUMMARY PATIENT: BRAD PINEDO UNIT: [id number] ADM DATE: 07/08/19 AGE: 79 : 40 SEX: M ROOM/BED: D.2122 AUTHOR: ANTIONETTE LOPEZ PHYSICIAN: REFERRING PHYSICIAN: MALLY THORNTON MD DATE OF SERVICE: 07/10/19 Discharge Plan Patient Name: BRAD PINEDO Facility: [facility]:[place] : 1940 Planned Disposition: Home Anticipated Discharge Date: Discharge Date: 07/09/2019 Expected LOS: Initial Reviewer: [email or web address] Initial Review Date: 07/08/2019 Generated: 07/10/19 4:53 pm Comments DCP- Discharge Planning Updated by [email or web address]: Sachi Barnes on 07/09/19 1:[address] Patient Name: BRAD PINEDO Admission Status: Elective Accout number: [id number] Admission Date: 07-08-2019 : 1940 Admission Diagnosis: Attending: JESSIE THORNTON Current LOS: 1 Anticipated DC Date: Planned Disposition: Home Primary Insurance: MEDICARE A & B Discharge Planning Comments: CM MET WITH PATIENT AFTER OBTAINING VERBAL CONSENT. PATIENT PLANS TO DC TO HOME TODAY. STATES DOES NOT NEED HH, REHAB OR EQUIPMENT. CM TO FOLLOW AND ASSIST NEEDED. Brush Trimming Machine Setter: Sachi Barnes DCPIA - Discharge Planning Initial Assessment Updated by [email or web address]: Sachi Barnes on 07/09/19 2:43 pm * Is the patient Alert and Oriented? Yes * PCP JESUS * Pharmacy [facility] * Preadmission Environment Home Alone * ADLs Independent * Equipment None * List name and contact numbers for known caregivers / representatives who currently or will assist patient after discharge: DIONISIO BRIGHT, * Community resources currently utilized None * Additional services required to return to the preadmission environment? No * Can the patient safely return to the preadmission environment? Yes * Has this patient been hospitalized within the prior 30 days at any hospital? No Coverage Notice Reviewer: [id number] - Sachi Barnes Notice Issued Date-Time: 07/08/2019 10:14 Notice Type: Medicare Outpatient Observation Notice Notice Delivered To: Patient Relationship to Patient: Agriscience Teacher Name: Delivery Method: HAND - Hand Delivered Ariela Days: Prior Verbal Notification: Recipient Understood Notice: Yes Recipient Signature: Yes Med Rec Note Co-signed by Attending: Coverage Notice Comment: Reviewer: Denise Barnes Notice Issued Date-Time: 07/09/2019 14:40 Notice Type: IM Discharge Notice Notice Delivered To: Patient Relationship to Patient: Agriscience Teacher Name: Delivery Method: HAND - Hand Delivered Ariela Days: Prior Verbal Notification: Recipient Understood Notice: Yes Recipient Signature: Yes Med Rec Note Co-signed by Attending: Coverage Notice Comment: Last DP export: 07/09/19 1:54 p Patient Name: BRAD PINEDO Page 39720 at 1553 All edits/amendments must be made on the electronic document DICTATION DATE: 07/10/191552 TRACK PRODUCTION ENGINEER: JASMINE 07/10/191552 RPT#: [id number] DC DATE:07/09/19 STATUS: DIS IN [facility] [address] [place] [address] END OF REPORT
== END 2019-07-09 15:44 | disposition home or self-care (01) | DRG 246 ==
LOC: D.CATH 09:02 → D.M2 18:13 → D.SDCHOLD 07-08 15:25 → D.M2 07-08 18:18 → D.CATH 07-08 18:18 → D.M2 07-09 15:44
PROVIDERS: Internal Medicine; ADMIT Internal Medicine Interventional Cardiology; ATTEND Internal Medicine Interventional Cardiology
PROC: 4A023N7 Measurement of Cardiac Sampling and Pressure, Left Heart, Percutaneous Approach (ICD-10-PCS; 2019-07-07)
PROC: B2111ZZ Fluoroscopy of Multiple Coronary Arteries using Low Osmolar Contrast (ICD-10-PCS; 2019-07-07)
PROC: B2151ZZ Fluoroscopy of Left Heart using Low Osmolar Contrast (ICD-10-PCS; 2019-07-07)
PROC: 027034Z Dilation of Coronary Artery, One Artery with Drug-eluting Intraluminal Device, Percutaneous Approach (ICD-10-PCS; principal; 2019-07-07 12:00)
PROC: 027036Z Dilation of Coronary Artery, One Artery with Three Drug-eluting Intraluminal Devices, Percutaneous Approach (ICD-10-PCS; 2019-07-08)
DX: I25.119 Atherosclerotic heart disease of native coronary artery with unspecified angina pectoris (principal); I13.2 Hypertensive heart and chronic kidney disease with heart failure and with stage 5 chronic kidney disease, or end stage renal disease; N18.5 Chronic kidney disease, stage 5; I50.20 Unspecified systolic (congestive) heart failure; R94.30 Abnormal result of cardiovascular function study, unspecified

== ENCOUNTER 2020-02-01 07:07 | Day surgery (SDC) | payer MEDICARE, BC ==
[~2020-02-01] VITALS: Ht 180.3 cm; Wt 88.5 kg
[~2020-02-01 07:07] MED LIST changes: +BAYER CHEWABLE81 MG PO; +MULTI-DAY VITAM1 TAB PO; +PLAVIX75 MG PO; +PRAVACHOL40 MG PO
[2020-02-01 07:40] LABS: BASOPHILS 0.7 % (0-2); EOSINOPHILS 4.5 % (0-7); HEMATOCRIT 27.2 % (42.0-54.0); HEMOGLOBIN 9.1 g/dL (13.5-17.5); IMMATURE GRANULOCYTES 0.3 % (0-5); LYMPHOCYTES 24.2 % (15-50); MCH 29.9 pg (26.0-34.0); MCHC 33.5 g/dL (31.0-37.0); MCV 89.5 fL (80.0-100.0); MEAN PLATELET VOLUME 8.3 fL (7.4-10.4); MONOCYTES 8.8 % (2-11); NEUTROPHILS 61.5 % (40-80); PLATELET COUNT 206 10x3/uL (130-400); RBC 3.04 10x6/uL (4.20-6.10); RDW 13.5 % (11.5-14.5); WBC 6.7 10x3/uL (4.8-10.8)
[2020-02-01 07:59] LABS: ANION GAP 15.2 mmol/L (8-16); CALCIUM 9.3 mg/dL (8.5-10.1); CARBON DIOXIDE 20.9 mmol/L (21.0-32.0); CREATININE - SERUM 12.3 mg/dL (0.6-1.3); POTASSIUM - SERUM 5.1 mmol/L (3.5-5.1)
[2020-02-01 08:17] LABS: INR 1.11 (0.85-1.17); PROTIME 14.3 SECONDS (11.6-15.0)
[2020-02-01 09:03] VITALS: Ht 180.3 cm; Wt 88.5 kg
[2020-02-01] MEDS ORDERED: NORVASC2.5 MG PO (09:15)
[2020-02-01] MEDS ORDERED: LASIX20 MG PO (09:19)
[2020-02-01] MEDS ORDERED: PHOSLO667 MG PO (09:20)
[2020-02-01] MEDS ORDERED: XALATAN 0.0052.5 ML EACH EYE (09:56)
--- NOTE | 2020-02-01 09:58 | NUR ---
0840 BMP & CBC RESULTS VIEWED BY DR. VANEGAS. STATES THEY ARE OKAY FOR SURGERY. INFORMED PT DRANK "2 SIPS OF COLA" @ 0630. Isiah MENDEZ R.N. 0845 ARMINDA TUCKER R.N./OR NOTIFIED PT DRANK "2 SIPS SODA" @ 0630 THIS AM. Isiah MENDEZ R.N. 0940 DR. NIXON INFORMED PT DRANK " 2 SIPS OF COLA" @ 0630 THSI AM. "THAT WILL BE OKAY" PER DR. NIXON. NO ORDERS RECEIVED. Isiah MENDEZ R.N.
[2020-02-01] MEDS ORDERED: ULTRAM50 MG PO (14:20)
--- NOTE | 2020-02-01 16:23 | NUR ---
1620 DR. VANEGAS ROUNDS ON PT. 1623 RX. GIVEN TO FRIEND TO TAKE AND GET FILLED. PT. DOES NOT THINK HE HAS THE "STRENGTH" TO GET OUT OF BED YET.
--- NOTE | 2020-02-04 10:30 | OP ---
PATIENT NAME: BRAD PINEDO MEDICAL RECORD: [id number] :40 LOCATION:[facility] ADMISSION DATE: SURGEON: ARCHIE VANEGAS MD DATE OF OPERATION: 02/01/2020 REFERRED BY: Dr. Zapata PREOPERATIVE DIAGNOSIS: Chronic kidney disease V with need to initiate peritoneal dialysis. POSTOPERATIVE DIAGNOSIS: Chronic kidney disease V with need to initiate peritoneal dialysis. OPERATION PERFORMED: Laparoscopic implantation of peritoneal dialysis catheter and open suture repair of initial reducible umbilical hernia. SURGEON: Archie Vanegas MD ANESTHESIA: General endotracheal per CODING MANAGER. PREOPERATIVE NOTE: Mr. Pinedo is a 79-year-old white male patient from [place]. He has chronic kidney disease and needs to start dialysis. I constructed a left radiocephalic AV fistula about 4 years ago and it had seemingly matured nicely, but when they tried to use it for the first time, just a couple of days ago, it extravasated. He wants to do home peritoneal dialysis and he is brought to the operating room at this time for implantation of a peritoneal catheter. He may need to begin an urgent peritoneal dialysis. He also has an initial asymptomatic small reducible umbilical hernia, which is to be repaired. DESCRIPTION OF PROCEDURE: Under general endotracheal anesthesia, the patient was placed in supine position. Calderon catheter inserted and the abdomen was prepped and draped in a sterile manner. The peritoneal cavity was accessed with a 5-mm Optiview XCEL port with a 5 mm 0-degree laparoscope through a small incision in the left upper quadrant. Telescopes were exchanged for a 5-mm 30-degree scope. The peritoneal cavity was insufflated with carbon dioxide and there were no significant adhesions or omentum present in the lower abdomen. The patient's pelvis is rather narrow and filled by rectosigmoid and I can see that this might be a problem in the future for dialysis if he has a problem with constipation. There was some [id number] diverticular change in the sigmoid colon, so I suspect that he does. The abdomen was deflated and the site for the dialysis catheter implantation marked using the catheter itself ,placing the coiled end just below the level of the symphysis pubis and the deep cuff, thereby ended up about an inch below the umbilicus. The abdomen was then reinsufflated and the umbilical hernia was examined from within and noted to be small, about the size of my index fingertip and certainly had no contents. I made a transverse incision beneath the umbilicus, extended over the left paramedian area and exposed the left anterior rectus sheath at the level of catheter insertion. A pursestring suture of 0 Vicryl was placed in the anterior rectus sheath. A 0.25% Marcaine with epinephrine was injected into the rectus muscle to help prevent postoperative bleeding and an introducer needle and sheath was advanced through the pursestring suture obliquely through the rectus muscle and anterior to the peritoneum about residential down into the abdomen before emerging into the OPERATIVE REPORT [id number] BRAD PINEDO peritoneal space. A dual cuff coiled adult standard size Merit Flex-Neck classic was inserted and the deep cuff buried within the rectus muscle and the pursestring suture tied. The coiled catheter positioned with the abdomen deflated down in the pelvis below the symphysis pubis. The catheter exit site had been identified at the beginning of the operation and the catheter was placed in a subcutaneous tunnel and brought out through that site in the left upper quadrant. The catheter was attached to a bag of saline and a 1000 cc ran in easily and then with siphoned out after the bag was placed on the floor. The catheter was subsequently flushed with 60 cc of heparin lock solution. The extension attached and closed with a new Betadine cap applied. The abdominal incision was extended to the right, and blunt and sharp dissection that encircled the umbilical hernia and it was sharply dissected from the overlying umbilical skin. The margins were quite strong fascia and the hernia defect being small, I elected not to use a mesh and repair the hernia with 2 interrupted [id number] 0 Prolene sutures. The wound irrigated with Ancef and gentamicin solution, was infiltrated with 0.25% Marcaine without epinephrine and closed with interrupted inverted 3-0 Vicryl and the skin was then closed with a running intracuticular 4-0 Stratafix. The incision was later closed with Dermabond glue and dressed with Maxorb Ag, Tegaderm, and Cavilon skin prep. After deflating the abdomen, the two 5-mm ports were removed and those sites infiltrated with Marcaine and then closed with inverted subcuticular 3-0 Vicryl and Dermabond glue. Those sites also were dressed with Maxorb Ag, Tegaderm, and Cavilon skin prep. The catheter and its attached extension set were coiled on the abdominal wall. A BioPatch was placed on the catheter at the skin there at the exit site. A bordered gauze dressing applied. The patient was at that time then awakened from his anesthetic after his Calderon catheter was removed and taken to the recovery room. Blood loss during the procedure was insignificant and unreplaced. Sponges, instruments, and needles were accounted for and no drain was utilized. The patient will go home today and return to see me in my office in about 2 weeks. He will need to see the PD nurses at the dialysis center, probably or Friday of this week, to have his catheter flushed. Ideally, hopefully he can wait 2 weeks before starting peritoneal dialysis, but if not, of course his catheter could be used sooner with low volume exchanges. Also, I have examined his arm and the fistula seems to be palpably usable and certainly can be tried again. TRANSINT:[id number] Voice Confirmation ID: [id number] DOCUMENT ID: [id number] ARCHIE VANEGAS MD at 1030 CC: JOSÉ ZAPATA MD [id number] DICTATION DATE: 02/01/20 1444 WOOD TURNING LATHE OPERATOR: 02/02/20 0042 [facility] 02/01/20 [facility] [address] [place] [address]
== END 2020-02-01 17:50 | disposition home or self-care (01) ==
LOC: D.OPS 07:07
PROVIDERS: Surgery; ATTEND Internal Medicine Nephrology
DX: N18.5 Chronic kidney disease, stage 5 (principal); I10 Essential (primary) hypertension

== ENCOUNTER 2020-02-09 15:29 | Inpatient (IN) | payer MEDICARE, BC ==
[~2020-02-09] VITALS: Ht 180.3 cm; Wt 91.0 kg
[2020-02-09] VITALS (8 sets, daily range): BP systolic 113–151; BP diastolic 67–83; BMI 27.5
[~2020-02-09 15:29] MED LIST changes: +LASIX20 MG PO; +NORVASC2.5 MG PO; +PHOSLO667 MG PO; +ULTRAM50 MG PO; +XALATAN 0.0052.5 ML EACH EYE
--- NOTE | 2020-02-09 16:15 | NUR ---
PT ARRIVED VIA WHEELCHAIR. VSS UPON ARRIVAL. DENIES NEEDS. DR BYRD MADE AWARE OF ARRIVAL. ORDERS RECEIVED.
[2020-02-09 16:51] LABS: HEMATOCRIT 22.2 % (42.0-54.0); HEMOGLOBIN 7.6 g/dL (13.5-17.5); LYMPHOCYTES 9.1 % (15-50); MCH 30.3 pg (26.0-34.0); MCHC 34.2 g/dL (31.0-37.0); MCV 88.4 fL (80.0-100.0); MEAN PLATELET VOLUME 8.9 fL (7.4-10.4); NEUTROPHILS 77.9 % (40-80); PLATELET COUNT 226 10x3/uL (130-400); RBC 2.51 10x6/uL (4.20-6.10); RDW 13.5 % (11.5-14.5); WBC 6.5 10x3/uL (4.8-10.8)
[2020-02-09 16:56] LABS: INR 1.26 (0.85-1.17); PROTIME 15.7 SECONDS (11.6-15.0)
[2020-02-09 17:08] LABS: ANION GAP 27.9 mmol/L (8-16); BILIRUBIN - TOTAL 0.34 mg/dL (0.2-1.3); CALCIUM 8.6 mg/dL (8.5-10.1); CARBON DIOXIDE 16.1 mmol/L (21.0-32.0); PROTEIN - SERUM 7.1 g/dL (6.4-8.2)
[2020-02-09 17:09] LABS: CREATININE - SERUM 22.7 mg/dL (0.6-1.3)
[2020-02-09 17:10] LABS: PHOSPHOROUS 11.4 mg/dL (2.5-4.9)
[2020-02-09 23:42] LABS: ANION GAP 18.6 mmol/L (8-16); POTASSIUM - SERUM 4.6 mmol/L (3.5-5.1)
[2020-02-10] VITALS (16 sets, daily range): BP systolic 130–180; BP diastolic 67–92; Ht 180.3 cm; Wt 91.0 kg
[2020-02-10 04:27] LABS: HEMATOCRIT 22.2 % (42.0-54.0); HEMOGLOBIN 7.6 g/dL (13.5-17.5); LYMPHOCYTES 10.8 % (15-50); MCH 30.5 pg (26.0-34.0); MCHC 34.2 g/dL (31.0-37.0); MCV 89.2 fL (80.0-100.0); MEAN PLATELET VOLUME 8.9 fL (7.4-10.4); NEUTROPHILS 78.1 % (40-80); PLATELET COUNT 215 10x3/uL (130-400); RBC 2.49 10x6/uL (4.20-6.10); RDW 13.6 % (11.5-14.5); WBC 7.4 10x3/uL (4.8-10.8)
[2020-02-10 04:39] LABS: ANION GAP 19.7 mmol/L (8-16); CALCIUM 8.3 mg/dL (8.5-10.1); CARBON DIOXIDE 22.5 mmol/L (21.0-32.0); POTASSIUM - SERUM 5.2 mmol/L (3.5-5.1)
--- NOTE | 2020-02-10 06:13 | HP ---
PATIENT: BRAD PINEDO MEDICAL RECORD: [id number] ACCOUNT: [id number] LOCATION:[facility] D.2302 : 40 ADMISSION DATE: 02/09/20 PCP: BHVAANI LEE MD HISTORY AND PHYSICAL EXAMINATION HISTORY OF PRESENT ILLNESS: This is a 79-year-old end-stage renal disease patient with a past medical history of ESRD, cancer of the prostate, hypertension, presents to the procedure center with a left radiocephalic fistula that is not supporting dialysis. His BUN is 176, CO2 13, potassium 6.8. REVIEW OF SYSTEMS: He has been lethargic according to his power of commercial attorney. No reported chest pain. Positive shortness of breath, difficulty sleeping, some altered mental status. All the rest of the review of systems per his power of commercial attorney. PAST MEDICAL AND SURGICAL HISTORY: 1. Left AV fistula, radiocephalic, by Dr. Thompson, 05/23/2017. 2. Prostate cancer, followed by Dr. Tse. 3. Bilateral renal cysts. 4. Hypertension. 5. Nephrolithiasis. 6. Coronary artery disease with stents [address] Martinez. 7. Anemia of CKD. 8. History of pneumonia. 9. Incomplete database as the H&P is from July of 2019. 10. Recent PD catheter placement, 02/01/2020. HOME MEDICATIONS: Aspirin, Lasix, Plavix, multivitamin, sodium bicarbonate, Fosrenol, amlodipine and pravastatin. They may have changed. ALLERGIES: NKDA. SOCIAL HISTORY: He is cared for by his power of commercial attorney that is his ex-. No tobacco, alcohol or illicit drugs. He used to be occasional drinker, but has discontinued. FAMILY HISTORY: Noncontributory. PHYSICAL EXAMINATION: VITAL SIGNS: Blood pressure 142/72, 72 heart rate, 18 respiratory rate. GENERAL: Elderly gentleman that was lethargic, but does answer questions and is oriented times 3. LUNGS: Grossly clear. SKIN: Left radiocephalic fistula with decreased inflow. No sign of infection. There is bruising. ABDOMEN: There is extensive bruising of the abdominal area and recent PD catheter placement with no overt drainage. Bowel sounds are positive. No guarding, but some tenderness. CHEST: Regular rhythm. S1 and S2. Breath sounds decreased at the bases. NEUROLOGIC: No focal neurological deficits; however, the gentleman is globally weak. LABORATORY DATA: As above. BUN 176, potassium 6.8, CO2 13. ASSESSMENT AND PLAN: HISTORY AND PHYSICAL [id number] BRAD PINEDO 1. End-stage renal disease, has not had adequate dialysis, is having altered mental status and hyperkalemia, dialysis this evening. 2. Altered mental status. We will follow his BUN nonfocal. We will have him evaluated in the Emergency Room for a CT scan. 3. Hypertension. Follow his blood pressure during his admission. 4. Hyperphosphatemia. 5. Acidosis. 6. Left radiocephalic fistula that is not supporting dialysis. He has been evaluated by Dr. Thompson. 7. Recent PD catheter, failed rapid start. There is some bruising. He had an appointment with Dr. Thompson in the a.m. and will consult Dr. Thompson tomorrow and likely let him know about this gentleman's admission this evening. 8. Urgent dialysis. 9. Evaluation of mental status. TRANSINT:[id number] Voice Confirmation ID: [id number] DOCUMENT ID: [id number] JAKE BYRD MD at 0613 CC: [id number] DICTATION DATE: 02/09/20 1359 FOOD SCIENTIST: 02/09/20 1444 ADM IN [facility] [id number] [place] [address]
[2020-02-10 11:11] LABS: HEPATITIS C ANTIBODY <0.1 S/CO RAT (0.0-0.9)
--- NOTE | 2020-02-10 12:30 | NUR ---
UP ON BSC, PASSING ALOT OF GAS, NO BM. HIBCLENS BATH GIVEN WITH COMPLETE LINEN CHANGE. DIALYSIS HERE. CONSENT FOR BLOOD OBTAINED AND PLACED IN CHART
[2020-02-10 14:11] LABS: % SATURATION 24 % (15-55); IRON 32 ug/dl (35-150); TOTAL IRON BIND CAPACITY 129 ug/dl (260-445); UNSAT IRON BIND CAPACITY 97 ug/dl (150-375)
--- NOTE | 2020-02-10 16:42 | NUR ---
REPORT CALLED TO DAVID. PATIENT TO BE TRANSFERED TO ROOM 2127. DIONISIO BRIGHT NOTIFIED OF ROOM NUMBER PER PHONE. DR. VANEGAS OFFICE CALLED TO REMIND OF CONSULTS. STATES DR. VANEGAS IS AWARE OF CONSULT.
--- NOTE | 2020-02-10 19:00 | NUR ---
REPORT RECEIVED, WILL CONTINUE POC. PATIENT IS AAOX4, LYING IN SEMI-FOWLERS POSITION. NO S/S OF DISTRESS OBSERVED, RR EVEN AND UNLABORED ON ROOM AIR. RT CHEST TRIALYSIS, PATENT, DRSG C/D/I. PATIENT DENIES NEEDS AT THIS TIME. FAMILY MEMEBER AT BEDSIDE. CL IN REACH, BED LOCKED AND LOWERED. WILL CTM.
[2020-02-11] VITALS: BP 162/84
--- NOTE | 2020-02-11 02:46 | NUR ---
PATIENT ON CL. STATES, "I'VE NEVER BEEN SO MISERABLE". C/O KNEE PAIN AND BEING UNCOMFORTABLE. ADMINISTERED PRN ULTRAM PER ORDERS.
[2020-02-11 06:16] LABS: BASOPHILS 0.4 % (0-2); EOSINOPHILS 2.5 % (0-7); IMMATURE GRANULOCYTES 0.5 % (0-5); LYMPHOCYTES 10.4 % (15-50); MCH 30.1 pg (26.0-34.0); MCHC 34.2 g/dL (31.0-37.0); MCV 88.1 fL (80.0-100.0); MEAN PLATELET VOLUME 8.9 fL (7.4-10.4); MONOCYTES 8.1 % (2-11); NEUTROPHILS 78.1 % (40-80); PLATELET COUNT 174 10x3/uL (130-400); WBC 7.9 10x3/uL (4.8-10.8)
[2020-02-11 06:37] LABS: ANION GAP 15.8 mmol/L (8-16); CALCIUM 8.5 mg/dL (8.5-10.1); CARBON DIOXIDE 25.9 mmol/L (21.0-32.0); POTASSIUM - SERUM 4.7 mmol/L (3.5-5.1)
[2020-02-11 06:40] LABS: HEMATOCRIT 27.5 % (42.0-54.0); HEMOGLOBIN 9.4 g/dL (13.5-17.5); RBC 3.12 10x6/uL (4.20-6.10)
[2020-02-11 06:43] LABS: CREATININE - SERUM 9.6 mg/dL (0.6-1.3); PHOSPHOROUS 5.7 mg/dL (2.5-4.9)
--- NOTE | 2020-02-11 08:06 | NUR ---
AM ROUNDING DONE WITH BED ALARM, NON SKID SOCKS IN PLACE. GLASSES ON. ON HEART MONITOR SHOWING 86, SR. ON ROOM AIR. RESERVE LEFT ARM, RIGHT IJ TRIALYSIS SEEN WITH PET COUNSELOR. TO DIALYSIS VIA BED.
--- NOTE | 2020-02-11 09:34 | NUR ---
Leola RODRIGUES CALLED DR VANEAGS OFFICE TO LET HIM KNOW OF CONSULT. PER DR VANEGAS HE WILL BE OVER AFTER AWHILE.
--- NOTE | 2020-02-11 11:00 | NUR ---
RETURNS TO FLOOR FROM DIALYSIS. SLEEPING.
[2020-02-11 11:44] VITALS: BP 159/82
--- NOTE | 2020-02-11 13:09 | NUR ---
AM MEDS AND LUNCH MEDS WHERE SCANNED INTO EMAR BUT THEN COMPUTER WENT DOWN. I HAVE TRIED TO CALL RAJ AT 1436 TO HELP WITH THIS. AWAITING CALL BACK.
--- NOTE | 2020-02-11 15:27 | NUR ---
DIONISIO BRIGHT-FORMER SPOUSE CALLED AGAIN WANTING TO SEE IF DR VANEGAS HAS BEEN BY. I TOLD HER NO AND WILL WATCH FOR HIM.
[2020-02-11 16:01] VITALS: BP 166/85
--- NOTE | 2020-02-11 17:25 | NUR ---
Leola RODRIGUES CALLED AGAIN TO DR VANEGAS OFFICE. SHE CALLED HIS CELL PHONE AND LEFT A MESSAGE FOR HIM TO CALL HER HE HAS NOT BEEN IN YET.
--- NOTE | 2020-02-11 17:25 | NUR ---
EATING SUPPER, PHOSLO HAS BEEN GIVEN. BED ALARM IS ON AND IN USE.
--- NOTE | 2020-02-11 18:25 | NUR ---
DR VANEGAS HERE TO SEE PATIENT.
--- NOTE | 2020-02-11 20:30 | NUR ---
INITIAL ROUNDS COMPLETED AT 1910 HRS. PT RESTING WITH EYES CLOSED. RESP EVEN AND REGULAR. ASSESSMENT COMPLETED AT 2009 HRS. VSS. ALERT AND ORIENTED TO PERSON, PLACE AND TIME. [place]. R NECK TRIALYSIS NOTED. SR PER CM HR 87. LUNGS DIMINISHED IN BASES BILAT. PD CATH TO ABD CLEAN,DRY AND INTACT. SCRATCH NOTED TO R FOREHEAD. DENIES CELINA DISCOMFORT. FAMILY AT BEDSIDE. SR UP X1, CALL LIGHT WITHIN REACH.
--- NOTE | 2020-02-11 21:45 | NUR ---
PM MEDS GIVEN PT DENIES ANY DISCOMFORT. FAMILY AT BEDSIDE.
[2020-02-11 22:23] VITALS: BP 158/82
--- NOTE | 2020-02-11 22:40 | NUR ---
RECEIVED REPORT, WILL ASSUME CARE OF PT, SLEEPING NO DISTRESS NOTICED AT THIS TIME, BED IS LOW, SRX2, CALL LIGHT IN REACH, WILL CONTINUE PLAN OF CARE
[2020-02-12 00:23] VITALS: BP 164/80
[2020-02-12 07:00] VITALS: BP 173/88
[2020-02-12 07:23] LABS: BASOPHILS 0.4 % (0-2); EOSINOPHILS 3.1 % (0-7); HEMATOCRIT 29.5 % (42.0-54.0); HEMOGLOBIN 9.7 g/dL (13.5-17.5); IMMATURE GRANULOCYTES 0.5 % (0-5); LYMPHOCYTES 13.1 % (15-50); MCH 29.6 pg (26.0-34.0); MCHC 32.9 g/dL (31.0-37.0); MCV 89.9 fL (80.0-100.0); MEAN PLATELET VOLUME 8.9 fL (7.4-10.4); NEUTROPHILS 71.9 % (40-80); PLATELET COUNT 192 10x3/uL (130-400); RBC 3.28 10x6/uL (4.20-6.10); RDW 13.8 % (11.5-14.5); WBC 7.3 10x3/uL (4.8-10.8)
[2020-02-12 07:38] LABS: ANION GAP 15.2 mmol/L (8-16); CALCIUM 8.7 mg/dL (8.5-10.1); CARBON DIOXIDE 26.1 mmol/L (21.0-32.0); CREATININE - SERUM 9.1 mg/dL (0.6-1.3); PHOSPHOROUS 5.7 mg/dL (2.5-4.9); POTASSIUM - SERUM 4.3 mmol/L (3.5-5.1)
--- NOTE | 2020-02-12 08:06 | NUR ---
AM ROUNDING DONE WITH PATIENT TELLING ME ITS HIS BIRTHDAY. IT IS. SITTING UP IN THE BED EATING BREAKFAST. GLASSES ON BEDSIDE TABLE. AM MEDS GIVEN. RIGHT IJ TRIALYISIS SEEN WITH NURSE PORT. PD CATH WITH INTACT DRESSING SEEN TO LEFT SIDE WITH LARGE AMOUNT OF BRUISING. ALL FALL PRECAUTIONS ON AND IN USE. CALL LIGHT AT SIDE.
--- NOTE | 2020-02-12 08:57 | NUR ---
TO DIALYSIS VIA BED AND HIS CELL PHONE.
--- NOTE | 2020-02-12 11:31 | NUR ---
I CALLED AND TALKED TO DIONISIO BRIGHT AT [phone] AND LET HER KNOW THAT HE WAS SCHEDULED FOR SURGERY THIS FRIDAY PER ORDERS.
--- NOTE | 2020-02-12 12:48 | NUR ---
BACK FROM DIALYSIS.
[2020-02-12 15:34] VITALS: BP 156/81
--- NOTE | 2020-02-12 19:47 | NUR ---
RECEIVED REPORT, WILL ASSUME CARE OF PT, RESTING WITH EYES CLOSED, NO DISTRESS NOTICED AT THIS TIME, BED IS LOW, SRX2, CALL LIGHT IN REACH, WILL CONTINUE PLAN OF CARE
[2020-02-12 20:51] VITALS: BP 157/80
[2020-02-13 00:57] VITALS: BP 142/75
[2020-02-13 04:45] VITALS: BP 172/81
[2020-02-13 06:09] LABS: BASOPHILS 0.3 % (0-2); HEMATOCRIT 30.9 % (42.0-54.0); IMMATURE GRANULOCYTES 0.4 % (0-5); LYMPHOCYTES 12.4 % (15-50); MCH 29.4 pg (26.0-34.0); MCHC 32.4 g/dL (31.0-37.0); MCV 90.9 fL (80.0-100.0); MEAN PLATELET VOLUME 8.9 fL (7.4-10.4); MONOCYTES 9.2 % (2-11); NEUTROPHILS 74.7 % (40-80); PLATELET COUNT 220 10x3/uL (130-400); RDW 13.6 % (11.5-14.5)
[2020-02-13 06:24] LABS: ANION GAP 14.8 mmol/L (8-16); CALCIUM 8.9 mg/dL (8.5-10.1); CARBON DIOXIDE 27.3 mmol/L (21.0-32.0); CREATININE - SERUM 7.6 mg/dL (0.6-1.3); PHOSPHOROUS 4.6 mg/dL (2.5-4.9); POTASSIUM - SERUM 4.1 mmol/L (3.5-5.1)
[2020-02-13 08:00] VITALS: BP 171/82
[2020-02-13 12:00] VITALS: BP 157/82
--- NOTE | 2020-02-13 15:36 | NUR ---
TELEMETRY SR. ASSISTED UP TO CHAIR WITH CALL LIGHT IN REACH., WILL CONT. PLAN OF CARE.
[2020-02-13 16:00] VITALS: BP 166/85
--- NOTE | 2020-02-13 19:29 | NUR ---
RECEIVED REPORT, WILL ASSUME CARE OF PT, SLEEPING, VISTOR IN ROOM, BED IS LOW, SRX2, CALL LIGHT IN REACH, WILL CONTINUE PLAN OF CARE
[2020-02-13 21:30] VITALS: BP 147/71
--- NOTE | 2020-02-14 02:00 | NUR ---
I have reviewed this patient and I concur with the Shift Assessment completed by the Licensed Practical Nurse today this shift.
[2020-02-14 04:30] VITALS: BP 146/76
[2020-02-14 06:01] LABS: BASOPHILS 0.4 % (0-2); EOSINOPHILS 3.8 % (0-7); HEMATOCRIT 30.2 % (42.0-54.0); HEMOGLOBIN 9.8 g/dL (13.5-17.5); IMMATURE GRANULOCYTES 0.2 % (0-5); LYMPHOCYTES 12.9 % (15-50); MCH 29.2 pg (26.0-34.0); MCHC 32.5 g/dL (31.0-37.0); MCV 89.9 fL (80.0-100.0); MEAN PLATELET VOLUME 8.9 fL (7.4-10.4); MONOCYTES 11.7 % (2-11); PLATELET COUNT 223 10x3/uL (130-400); RBC 3.36 10x6/uL (4.20-6.10); RDW 13.3 % (11.5-14.5); WBC 8.4 10x3/uL (4.8-10.8)
[2020-02-14 06:15] LABS: ANION GAP 14.7 mmol/L (8-16); CALCIUM 8.7 mg/dL (8.5-10.1); CARBON DIOXIDE 27.6 mmol/L (21.0-32.0); CREATININE - SERUM 10.4 mg/dL (0.6-1.3); PHOSPHOROUS 5.9 mg/dL (2.5-4.9); POTASSIUM - SERUM 4.3 mmol/L (3.5-5.1)
--- NOTE | 2020-02-14 10:06 | NUR ---
PT TRANSFERED TO DIALYSIS. WILL CTM.
[2020-02-14 10:25] VITALS: BP 138/69
[2020-02-14 16:29] VITALS: BP 147/73
[2020-02-14 21:29] VITALS: BP 137/64
[2020-02-15 04:00] VITALS: BP 130/46
--- NOTE | 2020-02-15 04:44 | NUR ---
I have reviewed this patient and I concur with the Shift Assessment completed by the Licensed Practical Nurse today this shift.
[2020-02-15 06:20] LABS: BASOPHILS 0.4 % (0-2); EOSINOPHILS 4.1 % (0-7); HEMATOCRIT 27.8 % (42.0-54.0); IMMATURE GRANULOCYTES 0.3 % (0-5); LYMPHOCYTES 10.3 % (15-50); MCH 29.1 pg (26.0-34.0); MCHC 32.4 g/dL (31.0-37.0); MEAN PLATELET VOLUME 8.7 fL (7.4-10.4); MONOCYTES 12.9 % (2-11); PLATELET COUNT 227 10x3/uL (130-400); RBC 3.09 10x6/uL (4.20-6.10); RDW 13.2 % (11.5-14.5)
[2020-02-15 06:38] LABS: INR 1.19 (0.85-1.17)
[2020-02-15 06:41] LABS: ANION GAP 14.4 mmol/L (8-16); CALCIUM 8.2 mg/dL (8.5-10.1); CARBON DIOXIDE 26.9 mmol/L (21.0-32.0); POTASSIUM - SERUM 4.3 mmol/L (3.5-5.1)
--- NOTE | 2020-02-15 07:00 | NUR ---
RECEIVED REPORT. ASSUMED CARE OF PATIENT. PATIENT RESTING IN BED WITH EYES OPEN. RESP EVEN AND UNLABORED. PATIENT POA AT BEDSIDE. PATIENT UNDERSTANDS HE IS NPO FOR PROCEDURE THIS AM. CALL LIGHT WITHIN REACH. NO DISTRESS.
[2020-02-15 07:50] VITALS: BP 156/71
--- NOTE | 2020-02-15 10:04 | NUR ---
PER , WAIT TO DIALYSIZE PATIENT UNTIL AFTER SURGERY TODAY.
--- NOTE | 2020-02-15 10:38 | NUR ---
PREOP MEDICATIONS ADMINISTERED AT THIS TIME. NO DISTRESS.
--- NOTE | 2020-02-15 11:34 | NUR ---
PATIENT LEFT UNIT AT 1115 FOR SURGICAL PROCEDURE. NO DISTRESS UPON LEAVING UNIT.
--- NOTE | 2020-02-15 12:34 | NUR ---
Nutrition Follow-up: Noted plans for fistulagram and possible hemosplit placement today. Pt/family report improved appetite/PO intake. Last BM was 02/08; +flatus. Family with numerous questions re: renal diet. Diet: NPO Wt: 200.6# (02/09) Labs noted: Na 134, K+ 3.4, Ca 8.2, PO4 6.0 Meds noted: Phoslo -Rec resume diet when medically feasible following procedure. -Monitor wt. -Discussed renal diet with pt/family; questions answered. -RD following.
--- NOTE | 2020-02-15 13:17 | NUR ---
SURGERY CALLED PATIENT ROOM TO SPEAK WITH THE FAMILY TO LET POA KNOW THAT THE SURGERY IS JUST NOW STARTING.
--- NOTE | 2020-02-15 14:46 | MORECARE ---
CASE MANAGEMENT DISCHARGE SUMMARY PATIENT: BRAD PINEDO UNIT: [id number] ADM DATE: 02/09/20 AGE: 80 : 40 SEX: M ROOM/BED: D.2127 AUTHOR: ANTIONETTE LOPEZ PHYSICIAN: REFERRING PHYSICIAN: JOSÉ ZAPATA MD DATE OF SERVICE: 02/15/20 Discharge Plan Patient Name: BRAD PINEDO [facility] [facility] 1940 Planned Disposition: Inpatient Rehab Facility Anticipated Discharge Date: Discharge Date: Expected LOS: Initial Reviewer: [email or web address] Initial Review Date: 02/09/2020 Generated: 02/15/20 3:45 pm Coverage Notice Reviewer: [id number] - Luz Harris Notice Issued Date-Time: 02/15/2020 14:33 Notice Type: Patient Choice Letter Notice Delivered To: Other Relationship to Patient: Friend Semiconductor Wafers Tester Name: Liliane Johnson Delivery Method: HAND - Hand Delivered Ariela Days: Prior Verbal Notification: Recipient Understood Notice: Yes Recipient Signature: Yes Med Rec Note Co-signed by Attending: Coverage Notice Comment: [facility] /delivered to friend (Liliane Johnson). Original to chart. Patient Name: BRAD PINEDO Page [id number] at 1446 All edits/amendments must be made on the electronic document DICTATION DATE: 02/15/20 1445 AESTHETICS INSTRUCTOR: JASMINE 02/15/20 1445 RPT#: [id number] DC DATE: STATUS: ADM IN [facility] [address] [place] [address] END OF REPORT
--- NOTE | 2020-02-15 14:49 | NUR ---
PATIENT REMAINS OFF THE UNIT AT THIS TIME FOR SURGICAL PROCEDURE.
[2020-02-15 15:43] LABS: BILIRUBIN NEGATIVE (NEGATIVE); KETONE NEGATIVE (NEGATIVE); NITRITE NEGATIVE (NEGATIVE); UROBILINOGEN NORMAL (NORMAL)
--- NOTE | 2020-02-15 15:45 | NUR ---
PATIENT RETURNED TO ROOM 2126 FROM RECOVERY. PATIENT SLEEPY, O2 SAT 97%, ENG CATHETER PLACED IN RECOVERY DUE TO ABD DISTENTION. PATIENT POA AT BEDSIDE. AWAITING PATIENT TO GO TO DIALYSIS. VS STABLE.
[2020-02-15 15:47] LABS: RED CELLS - URINE >50 /hpf (0-5)
--- NOTE | 2020-02-15 15:47 | MORECARE ---
CASE MANAGEMENT DISCHARGE SUMMARY PATIENT: BRAD PINEDO UNIT: [id number] ADM DATE: 02/09/20 AGE: 80 : 40 SEX: M ROOM/BED: D.2007 AUTHOR: ANTIONETTE LOPEZ PHYSICIAN: REFERRING PHYSICIAN: JOSÉ ZAPATA MD DATE OF SERVICE: 02/15/20 Discharge Plan Patient Name: BRAD PINEDO Facility: [facility]:[place] : 1940 Planned Disposition: Inpatient Rehab Facility Anticipated Discharge Date: Discharge Date: Expected LOS: Initial Reviewer: [email or web address] Initial Review Date: 02/09/2020 Generated: 02/15/20 4:46 pm Comments DCP- Discharge Planning Updated by [id number]: Luz Harris on 02/15/20 2:[address] CM contacted [facility], regarding HD unit and days. Labs have been ordered,but pended results. CM met with patient's Medical POA, Liliane Johnson ([phone]), regarding DC plans. Liliane states that the patient lives independently, alone. PCP: None at present. Pharmacy: [facility], w/delivery. DME: nilda Crain, KIMMY, Shower Chair. POA states that the patient has become very debilitated, due to his poor kidney function. Discussed HHS, SNF, Rehab. POA states if patent requires Rehab, she prefers [facility], or a SNF. [facility]. CM will assist with any DC needs PRN. Coverage Notice Reviewer: [id number] - Luz Harris Notice Issued Date-Time: 02/15/2020 14:33 Notice Type: Patient Choice Letter Notice Delivered To: Other Relationship to Patient: Friend Ship Captain Name: Liliane Johnson Delivery Method: HAND - Hand Delivered Ariela Days: Prior Verbal Notification: Recipient Understood Notice: Yes Recipient Signature: Yes Med Rec Note Co-signed by Attending: Coverage Notice Comment: [facility] choice for [facility] signed /delivered to friend (Liliane Johnson). Original to chart. Last DP export: 02/15/20 1:46 pm Patient Name: BRAD PINEDO Page [id number] at 1547 All edits/amendments must be made on the electronic document DICTATION DATE: 02/15/20 1546 HEALTH CLUB MANAGER: JASMINE 02/15/20 154 RPT#: [id number] DC DATE: STATUS: ADM IN [facility] [address] [place] [address] END OF REPORT
[2020-02-15 15:49] LABS: BACTERIA FEW /hpf (NONE SEEN)
--- NOTE | 2020-02-15 16:07 | MORECARE ---
CASE MANAGEMENT DISCHARGE SUMMARY PATIENT: BRAD PINEDO UNIT: [id number] ADM DATE: 02/09/20 AGE: 80 : 40 SEX: M ROOM/BED: D.2127 AUTHOR: JESSICA,DOC PHYSICIAN: REFERRING PHYSICIAN: JOSÉ ZAPATA MD DATE OF SERVICE: 02/15/20 Discharge Plan Patient Name: BRAD PINEDO Facility: [facility]:[place] : 1940 Planned Disposition: Inpatient Rehab Facility Anticipated Discharge Date: Discharge Date: Expected LOS: Initial Reviewer: [id number] Initial Review Date: 02/09/2020 Generated: 02/15/20 5:06 pm Comments DCP- Discharge Planning Updated by [email or web address]: Luz Harris on 02/15/20 2:[address] CM contacted [facility], regarding HD unit and days. Labs have been ordered,but pended results. CM met with patient's Medical POA, Liliane Johnson ([phone]), regarding DC plans. Liliane states that the patient lives independently, alone. PCP: None at present. Pharmacy: [facility], w/delivery. DME: nilda Crain, BSC, Shower Chair. POA states that the patient has become very debilitated, due to his poor kidney function. Discussed HHS, SNF, Rehab. POA states if patent requires Rehab, she prefers [facility], or a SNF. Patient Choice has been signed for [employer] [facility]. CM will assist with any DC needs PRN. DCPIA - Discharge Planning Initial Assessment Updated by [id number]: Luz Harris on 02/15/20 3:47 pm * Is the patient Alert and Oriented? Yes * PCP None at present * Pharmacy [facility] w/delivery * Preadmission Environment Home Alone * ADLs Independent * Equipment Cane Rolling Walker Shower Chair * Other Equipment * List name and contact numbers for known caregivers / representatives who currently or will assist patient after discharge: Liliane Braun (Medical POA-friend) [phone] * Verbal permission to speak to the caregivers and representatives has been obtained from the patient. N/A * Community resources currently utilized None * Please name any agencies selected above. [facility] (MICHELLE signed) * Additional services required to return to the preadmission environment? Yes * Can the patient safely return to the preadmission environment? No * Has this patient been hospitalized within the prior 30 days at any hospital? No Coverage Notice Reviewer: [id number] Denise Harris Notice Issued Date-Time: 02/15/2020 14:33 Notice Type: Patient Choice Letter Notice Delivered To: Other Relationship to Patient: Friend Client Renewal Specialist Name: Liliane Johnson Delivery Method: HAND - Hand Delivered Ariela Days: Prior Verbal Notification: Recipient Understood Notice: Yes Recipient Signature: Yes Med Rec Note Co-signed by Attending: Coverage Notice Comment: Patient choice for [facility] signed /delivered to friend (Liliane Johnson). Original to chart. Last DP export: 02/15/20 2:47 pm Patient Name: BRAD PINEDO Page [id number] at 1607 All edits/amendments must be made on the electronic document DICTATION DATE: 02/15/206 LOAN MANAGER: JASMINE 02/15/20 1606 RPT#: [id number] DC DATE: STATUS: ADM IN [facility] [address] [place] [address] END OF REPORT
[2020-02-15 16:11] VITALS: BP 135/67
--- NOTE | 2020-02-15 16:13 | NUR ---
PATIENT TARA UNIT TO DIALYSIS AT THIS TIME. NO DISTRESS WHILE LEAVING UNIT VIA BED.
--- NOTE | 2020-02-15 19:36 | NUR ---
PT GM IN DIALYSIS.
[2020-02-15 20:43] VITALS: BP 151/72
[2020-02-16] VITALS: BP 147/69
[2020-02-16 04:00] VITALS: BP 143/83
--- NOTE | 2020-02-16 06:53 | NUR ---
I have reviewed this patient and I concur with the Shift Assessment completed by the Licensed Practical Nurse today this shift.
[2020-02-16 08:15] VITALS: BP 130/62
--- NOTE | 2020-02-16 10:29 | MORECARE ---
CASE MANAGEMENT DISCHARGE SUMMARY PATIENT: BRAD PINEDO UNIT: [id number] ADM DATE: 02/09/20 AGE: 80 : 40 SEX: M ROOM/BED: D.2127 AUTHOR: JESSICA,DOC PHYSICIAN: REFERRING PHYSICIAN: JOSÉ ZAPATA MD DATE OF SERVICE: 02/16/20 Discharge Plan Patient Name: BRAD PINEDO Facility: [facility]:[place] : 1940 Planned Disposition: Inpatient Rehab Facility Anticipated Discharge Date: Discharge Date: Expected LOS: Initial Reviewer: [id number] Initial Review Date: 02/09/2020 Generated: 02/16/20 11:28 am Comments DCP- Discharge Planning Updated by [email or web address]: Luz Harris on 02/15/20 2:[address] CM contacted [facility], regarding HD unit and days. Labs have been ordered,but pended results. CM met with patient's Medical POA, Liliane Johnson ([phone]), regarding DC plans. Liliane states that the patient lives independently, alone. PCP: None at present. Pharmacy: [facility], w/delivery. DME: nilda Crain, BSC, Shower Chair. POA states that the patient has become very debilitated, due to his poor kidney function. Discussed HHS, SNF, Rehab. POA states if patent requires Rehab, she prefers [facility], or a SNF. Patient Choice has been signed for [facility]. CM will assist with any DC needs PRN. DCPIA - Discharge Planning Initial Assessment Updated by [email or web address]: Luz Harrsi on 02/15/20 3:47 pm * Is the patient Alert and Oriented? Yes * PCP None at present * Pharmacy [facility] w/delivery * Preadmission Environment Home Alone * ADLs Independent * Equipment Cane Rolling Walker Shower Chair * Other Equipment * List name and contact numbers for known caregivers / representatives who currently or will assist patient after discharge: Liliane Braun (Medical POA-friend) [phone] * Verbal permission to speak to the caregivers and representatives has been obtained from the patient. N/A * Community resources currently utilized None * Please name any agencies selected above. [facility] (MICHELLE signed) * Additional services required to return to the preadmission environment? Yes * Can the patient safely return to the preadmission environment? No * Has this patient been hospitalized within the prior 30 days at any hospital? No External [facility]iders [facility] Contact Date: Service Request Date: Service Type: Resolution: Reviewer: Comments: Coverage Notice Reviewer: [id number] Denise Harris Notice Issued Date-Time: 02/15/2020 14:33 Notice Type: Patient Choice Letter Notice Delivered To: Other Relationship to Patient: Friend Director Independent Name: Liliane Johnson Delivery Method: HAND - Hand Delivered Ariela Days: Prior Verbal Notification: Recipient Understood Notice: Yes Recipient Signature: Yes Med Rec Note Co-signed by Attending: Coverage Notice Comment: Patient choice for [facility] signed /delivered to friend (Liliane Johnson). Original to chart. Last DP export: 02/15/20 3:07 pm Patient Name: BRAD PINEDO Page 35958 at 1029 All edits/amendments must be made on the electronic document DICTATION DATE: 02/16/20 1029 JOB BOSS: JASMINE 02/16/20 1029 RPT#: [id number] DC DATE: STATUS: ADM IN [facility] [address] [place] [address] END OF REPORT
--- NOTE | 2020-02-16 10:37 | MORECARE ---
CASE MANAGEMENT DISCHARGE SUMMARY PATIENT: BRAD PINEDO UNIT: [id number] ADM DATE: 02/09/20 AGE: 80 : 40 SEX: M ROOM/BED: D.2127 AUTHOR: JESSICA,DOC PHYSICIAN: REFERRING PHYSICIAN: JOSÉ ZAPATA MD DATE OF SERVICE: 02/16/20 Discharge Plan Patient Name: BRAD PINEDO Facility: [facility]:[place] : 1940 Planned Disposition: Inpatient Rehab Facility Anticipated Discharge Date: Discharge Date: Expected LOS: Initial Reviewer: [id number] Initial Review Date: 02/09/2020 Generated: 02/16/20 11:36 am Comments DCP- Discharge Planning Updated by [email or web address]: Luz Harris on 02/16/20 9:[address] CM contacted Vesta, with [facility] regarding possible admit. Information faxed, await CB. DCP- Discharge Planning Updated by [email or web address]: Luz Harris on 02/15/20 2:[address] CM contacted [facility], regarding HD unit and days. Labs have been ordered,but pended results. CM met with patient's Medical POA, Liliane Johnson ([phone]), regarding DC plans. Liliane states that the patient lives independently, alone. PCP: None at present. Pharmacy: [facility], w/delivery. DME: nilda Crain, BSC, Shower Chair. POA states that the patient has become very debilitated, due to his poor kidney function. Discussed HHS, SNF, Rehab. POA states if patent requires Rehab, she prefers [facility], or a SNF. [facility]. CM will assist with any DC needs PRN. DCPIA - Discharge Planning Initial Assessment Updated by [email or web address]: Luz Harris on 02/15/20 3:47 pm * Is the patient Alert and Oriented? Yes * PCP None at present * Pharmacy [facility] w/delivery * Preadmission Environment Home Alone * ADLs Independent * Equipment Cane Rolling Walker Shower Chair * Other Equipment * List name and contact numbers for known caregivers / representatives who currently or will assist patient after discharge: Lliiane Braun (Medical POA-friend) [phone] * Verbal permission to speak to the caregivers and representatives has been obtained from the patient. N/A * Community resources currently utilized None * Please name any agencies selected above. [facility] (MICHELLE signed) * Additional services required to return to the preadmission environment? Yes * Can the patient safely return to the preadmission environment? No * Has this patient been hospitalized within the prior 30 days at any hospital? No Coverage Notice Reviewer: [id number] Denise Harris Notice Issued Date-Time: 02/15/2020 14:33 Notice Type: Patient Choice Letter Notice Delivered To: Other Relationship to Patient: Friend Heavy Equipment Rental Manager Name: Liliane Johnson Delivery Method: HAND - Hand Delivered Ariela Days: Prior Verbal Notification: Recipient Understood Notice: Yes Recipient Signature: Yes Med Rec Note Co-signed by Attending: Coverage Notice Comment: Patient choice for [facility] signed /delivered to friend (Liliane Johnson). Original to chart. Last DP export: 02/16/20 9:29 am Patient Name: BRAD PINEDO Page [id number] at 1037 All edits/amendments must be made on the electronic document DICTATION DATE: 02/16/20 1036 PRINTING PLATE CLERK: JASMINE 02/16/20 1036 RPT#: [id number] DC DATE: STATUS: ADM IN [facility] [address] [place] [address] END OF REPORT
[2020-02-16 11:29] VITALS: BP 129/66
[2020-02-16 15:41] VITALS: BP 139/64
--- NOTE | 2020-02-16 16:21 | MORECARE ---
CASE MANAGEMENT DISCHARGE SUMMARY PATIENT: BRAD PINEDO UNIT: [id number] ADM DATE: 02/09/20 AGE: 80 : 40 SEX: M ROOM/BED: D.1742 AUTHOR: JESSICA,DOC PHYSICIAN: REFERRING PHYSICIAN: JOSÉ ZPAATA MD DATE OF SERVICE: 02/16/20 Discharge Plan Patient Name: BRAD PINEDO Facility: [facility]:[place] : 1940 Planned Disposition: Inpatient Rehab Facility Anticipated Discharge Date: Discharge Date: Expected LOS: Initial Reviewer: [id number] Initial Review Date: 02/09/2020 Generated: 02/16/20 5:21 pm Comments DCP- Discharge Planning Updated by [email or web address]: Luz Harris on 02/16/20 3:[address] CM contacted Vesta, with [facility] regarding possible admit. Information faxed, await CB. [facility] Patient's routine HD days are // @0640 @[facility]. While patient is in [facility], he will go to HD @[facility]. CM gave the nurse report to Torres, patient's nurse, #[phone]. DCP- Discharge Planning Updated by [email or web address]: Luz Harris on 02/15/20 2:[address] CM contacted [facility], regarding HD unit and days. Labs have been ordered,but pended results. DINA met with patient's Medical POA, Liliane Johnson ([phone]), regarding DC plans. Liliane states that the patient lives independently, alone. PCP: None at present. Pharmacy: [facility], w/delivery. DME: nilda Crain, KIMMY, Shower Chair. POA states that the patient has become very debilitated, due to his poor kidney function. Discussed HHS, SNF, Rehab. POA states if patent requires Rehab, she prefers [facility], or a SNF. Patient Choice has been signed for [facility]. CM will assist with any DC needs PRN. DCPIA - Discharge Planning Initial Assessment Updated by [email or web address]: Luz Harris on 02/15/20 3:47 pm * Is the patient Alert and Oriented? Yes * PCP None at present * [facility] w/delivery * Preadmission Environment Home Alone * ADLs Independent * Equipment Cane Rolling Walker Shower Chair * Other Equipment * List name and contact numbers for known caregivers / representatives who currently or will assist patient after discharge: Liliane Braun (Medical POA-friend) [phone] * Verbal permission to speak to the caregivers and representatives has been obtained from the patient. N/A * Community resources currently utilized None * Please name any agencies selected above. [facility] (MICHELLE signed) * Additional services required to return to the preadmission environment? Yes * Can the patient safely return to the preadmission environment? No * Has this patient been hospitalized within the prior 30 days at any hospital? No Coverage Notice Reviewer: [id number] Denise Harris Notice Issued Date-Time: 02/15/2020 14:33 Notice Type: Patient Choice Letter Notice Delivered To: Other Relationship to Patient: Friend Construction Trades Teacher Name: Liliane Johnson Delivery Method: HAND - Hand Delivered Ariela Days: Prior Verbal Notification: Recipient Understood Notice: Yes Recipient Signature: Yes Med Rec Note Co-signed by Attending: Coverage Notice Comment: Patient choice for [facility] signed /delivered to friend (Liliane Johnson). Original to chart. Last DP export: 02/16/20 9:37 am Patient Name: BRAD PINEDO Page [id number] at 1621 All edits/amendments must be made on the electronic document DICTATION DATE: 02/16/20 162 CLUB MANAGER: JASMINE 02/16/20 1621 RPT#: [id number] DC DATE: STATUS: ADM IN [facility] [address] [place] [address] END OF REPORT
--- NOTE | 2020-02-16 17:14 | MORECARE ---
CASE MANAGEMENT DISCHARGE SUMMARY PATIENT: BRAD PINEDO UNIT: [id number] ADM DATE: 02/09/20 AGE: 80 : 40 SEX: M ROOM/BED: D.0220 AUTHOR: JESSICA,DOC PHYSICIAN: REFERRING PHYSICIAN: JOSÉ ZAPATA MD DATE OF SERVICE: 02/16/20 Discharge Plan Patient Name: BRAD PINEDO Facility: [facility]:[place] : 1940 Planned Disposition: Inpatient Rehab Facility Anticipated Discharge Date: Discharge Date: Expected LOS: Initial Reviewer: [id number] Initial Review Date: 02/09/2020 Generated: 02/16/20 6:14 pm Comments DCP- Discharge Planning Updated by [email or web address]: Luz Harris on 02/16/20 4:[address] CM contacted Vesta with [facility] regarding possible admit. Information faxed, await CB. [facility] Patient's routine HD days are / @0640 @[facility] While patient is in [facility], he will go to HD @[facility]. CM gave the nurse report to Torres, patient's nurse, #[phone]. Per Delores [facility], The van will transport patient around [phone], DCP- Discharge Planning Updated by [email or web address]: Luz Harris on 02/15/20 2:[address] CM contacted [facility], regarding HD unit and days. Labs have been ordered,but pended results. CM met with patient's Medical POA, Liliane Johnson ([phone]), regarding DC plans. Liliane states that the patient lives independently, alone. PCP: None at present. Pharmacy: [facility], w/delivery. DME: nilda Crain, KIMMY, Shower Chair. POA states that the patient has become very debilitated, due to his poor kidney function. Discussed HHS, SNF, Rehab. POA states if patent requires Rehab, she prefers [facility], or a SNF. Patient Choice has been signed for [facility]. CM will assist with any DC needs PRN. DCPIA - Discharge Planning Initial Assessment Updated by [email or web address]: Luz Harris on 02/15/20 3:47 pm * Is the patient Alert and Oriented? Yes * PCP None at present * [facility] w/delivery * Preadmission Environment Home Alone * ADLs Independent * Equipment Cane Rolling Walker Shower Chair * Other Equipment * List name and contact numbers for known caregivers / representatives who currently or will assist patient after discharge: Liliane Braun (Medical POA-friend) [phone] * Verbal permission to speak to the caregivers and representatives has been obtained from the patient. N/A * Community resources currently utilized None * Please name any agencies selected above. [facility] (MICHLELE signed) * Additional services required to return to the preadmission environment? Yes * Can the patient safely return to the preadmission environment? No * Has this patient been hospitalized within the prior 30 days at any hospital? No Coverage Notice Reviewer: [id number] - Luz Harris Notice Issued Date-Time: 02/15/2020 14:33 Notice Type: Patient Choice Letter Notice Delivered To: Other Relationship to Patient: Friend Scrubber System Attendant Name: Liliane Johnson Delivery Method: HAND - Hand Delivered Ariela Days: Prior Verbal Notification: Recipient Understood Notice: Yes Recipient Signature: Yes Med Rec Note Co-signed by Attending: Coverage Notice Comment: Patient choice for [facility] signed /delivered to friend (Liliane Johnson). Original to chart. Last DP export: 02/16/20 3:21 pm Patient Name: BRAD PINEDO Page 27640 at 1714 All edits/amendments must be made on the electronic document DICTATION DATE: 02/16/201713 PUBLIC HEALTH INSPECTOR: JASMINE 02/16/201713 RPT#: [id number] DC DATE: STATUS: ADM IN [facility] [address] [place] [address] END OF REPORT
--- NOTE | 2020-02-16 17:50 | MORECARE ---
CASE MANAGEMENT DISCHARGE SUMMARY PATIENT: BRAD PINEDO UNIT: [id number] ADM DATE: 02/09/20 AGE: 80 : 40 SEX: M ROOM/BED: D.2972 AUTHOR: JESSICA,DOC PHYSICIAN: REFERRING PHYSICIAN: JOSÉ ZAPATA MD DATE OF SERVICE: 02/16/20 Discharge Plan Patient Name: BRAD PINEDO Facility: [facility]:[place] : 1940 Planned Disposition: Inpatient Rehab Facility Anticipated Discharge Date: 02/16/20 Discharge Date: Expected LOS: 7 Initial Reviewer: [id number] Initial Review Date: 02/09/2020 Generated: 02/16/20 6:50 pm Comments DCP- Discharge Planning Updated by [email or web address]: Luz Harris on 02/16/20 4:[address] CM contacted Vesta with [facility] regarding possible admit. Information faxed, await CB. Patient will be accepted today to [facility]. Patient's routine HD days are // @0640 @[facility]. While patient is in [facility], he will go to HD @[facility]. CM gave the nurse report to Torres, patient's nurse, #[phone]. Per Delores [facility], The van will transport patient around [phone], DCP- Discharge Planning Updated by [email or web address]: Luz Harris on 02/15/20 2:[address] CM contacted [facility], regarding HD unit and days. Labs have been ordered,but pended results. CM met with patient's Medical POA, Liliane Johnson ([phone]), regarding DC plans. Liliane states that the patient lives independently, alone. PCP: None at present. Pharmacy[facility], w/delivery. DME: nilda Crain, [facility], Shower Chair. POA states that the patient has become very debilitated, due to his poor kidney function. Discussed HHS, SNF, Rehab. POA states if patent requires Rehab, she prefers [facility], or a SNF. Patient Choice has been signed for [facility]. CM will assist with any DC needs PRN. DCPIA - Discharge Planning Initial Assessment Updated by [id number]: Luz Harris on 02/15/20 3:47 pm * Is the patient Alert and Oriented? Yes * PCP None at present * Pharmacy [facility]delivery * Preadmission Environment Home Alone * ADLs Independent * Equipment Cane Rolling Walker Shower Chair * Other Equipment * List name and contact numbers for known caregivers / representatives who currently or will assist patient after discharge: Liliane Braun (Medical POA-friend) [phone] * Verbal permission to speak to the caregivers and representatives has been obtained from the patient. N/A * Community resources currently utilized None * Please name any agencies selected above. [facility] (MICHELLE signed) * Additional services required to return to the preadmission environment? Yes * Can the patient safely return to the preadmission environment? No * Has this patient been hospitalized within the prior 30 days at any hospital? No Coverage Notice Reviewer: [id number] Denise Harris Notice Issued Date-Time: 02/15/2020 14:33 Notice Type: Patient Choice Letter Notice Delivered To: Other Relationship to Patient: Friend Keg Filler Name: Liliane Johnson Delivery Method: HAND - Hand Delivered Ariela Days: Prior Verbal Notification: Recipient Understood Notice: Yes Recipient Signature: Yes Med Rec Note Co-signed by Attending: Coverage Notice Comment: Patient choice for [facility] signed /delivered to friend (Liliane Johnson). Original to chart. Reviewer: [id number] Denise Harris Notice Issued Date-Time: 02/16/2020 17:41 Notice Type: IM Discharge Notice Notice Delivered To: Patient Relationship to Patient: Self Keg Filler Name: Brad Pinedo Delivery Method: HAND - Hand Delivered Ariela Days: Prior Verbal Notification: Recipient Understood Notice: Yes Recipient Signature: Yes Med Rec Note Co-signed by Attending: Coverage Notice Comment: DC IMM signed/provided to patient's DC packet. Original to chart. Last DP export: 02/16/20 4:14 pm Patient Name: BRAD PINEDO Page 78379 at 1750 All edits/amendments must be made on the electronic document DICTATION DATE: 02/16/201749 ENVIRONMENTAL AID: JASMINE 02/16/201749 RPT#: [id number] DC DATE: STATUS: ADM IN [facility] [address] [place] [address] END OF REPORT
--- NOTE | 2020-02-16 17:57 | MORECARE ---
CASE MANAGEMENT DISCHARGE SUMMARY PATIENT: JAYESH PINEDO UNIT: [id number] ADM DATE: 02/09/20 AGE: 80 : 40 SEX: M ROOM/BED: D.2127 AUTHOR: JESSICA,DOC PHYSICIAN: REFERRING PHYSICIAN: JOSÉ ZAPATA MD DATE OF SERVICE: 02/16/20 Discharge Plan Patient Name: JAYESH PINEDO Facility: [facility]:[place] : 1940 Planned Disposition: Inpatient Rehab Facility Anticipated Discharge Date: 02/16/20 Discharge Date: Expected LOS: 7 Initial Reviewer: [email or web address] Initial Review Date: 02/09/2020 Generated: 02/16/20 6:57 pm Comments DCP- Discharge Planning Updated by [email or web address]: Luz Harris on 02/16/20 4:[address] CM contacted [facility] with [facility] regarding possible admit. Information faxed, await CB. Patient will be accepted today to [facility]. Patient's routine HD days are // @0640 @[facility] While patient is in [facility], he will go to HD @[facility]. DINA gave the nurse report to Torres, patient's nurse, #[phone]. Per Delores [facility], The van will transport patient around [phone]. Notified Kavitha Velazco of DC today to [facility], for HD arrangements. 1500: CM contacted patient's ex- Liliane Johnson, regarding acceptance to [facility] today. Made her aware that the patient will transport via van. Per Liliane Johnson, "I would like for him to stay for a few more days, in order to get stronger and see a urologist". CM made her aware that the admitting MD/Numerical Control Operator feels that the patient is ready for DC and that this is a good step forward for the patient. Also made her aware that [facility] does not have a urologist interventional physiatrist at this time. DC IMM signed by patient. DCP- Discharge Planning Updated by [email or web address]: Lzu Harris on 02/15/20 2:[address] CM contacted [facility], regarding HD unit and days. Labs have been ordered,but pended results. CM met with patient's Medical POA, Liliane Johnson ([phone]), regarding DC plans. Liliane states that the patient lives independently, alone. PCP: None at present. Pharmacy: [facility], w/delivery. DME: Walker, cane, BSC, Shower Chair. POA states that the patient has become very debilitated, due to his poor kidney function. Discussed HHS, SNF, Rehab. POA states if patent requires Rehab, she prefers [facility], or a SNF. Patient Choice has been signed for [facility]. CM will assist with any DC needs PRN. DCPIA - Discharge Planning Initial Assessment Updated by [email or web address]: Luz Harris on 02/15/20 3:47 pm * Is the patient Alert and Oriented? Yes * PCP None at present * Pharmacy [facility] w/delivery * Preadmission Environment Home Alone * ADLs Independent * Equipment Cane Rolling Walker Shower Chair * Other Equipment * List name and contact numbers for known caregivers / representatives who currently or will assist patient after discharge: Liliane Braun (Medical POA-friend) [phone] * Verbal permission to speak to the caregivers and representatives has been obtained from the patient. N/A * Community resources currently utilized None * Please name any agencies selected above. [facility] (MICHELLE signed) * Additional services required to return to the preadmission environment? Yes * Can the patient safely return to the preadmission environment? No * Has this patient been hospitalized within the prior 30 days at any hospital? No Coverage Notice Reviewer: [id number] Denise Harris Notice Issued Date-Time: 02/15/2020 14:33 Notice Type: Patient Choice Letter Notice Delivered To: Other Relationship to Patient: Friend Move Coordinator Name: Liliane Johnson Delivery Method: HAND - Hand Delivered Ariela Days: Prior Verbal Notification: Recipient Understood Notice: Yes Recipient Signature: Yes Med Rec Note Co-signed by Attending: Coverage Notice Comment: Patient choice for [facility] signed /delivered to friend (Liliane Johnson). Original to chart. Reviewer: [email or web address] Denise Harris Notice Issued Date-Time: 02/16/2020 17:41 Notice Type: IM Discharge Notice Notice Delivered To: Patient Relationship to Patient: Self Move Coordinator Name: Jayesh Pinedo Delivery Method: HAND - Hand Delivered Ariela Days: Prior Verbal Notification: Recipient Understood Notice: Yes Recipient Signature: Yes Med Rec Note Co-signed by Attending: Coverage Notice Comment: DC IMM signed/provided to patient's DC packet. Original to chart. Last DP export: 02/16/20 4:50 pm Patient Name: JAYESH PINEDO Page [id number] at 1757 All edits/amendments must be made on the electronic document DICTATION DATE: 02/16/201756 VAT HOUSE LABORER: JASMINE 02/16/201756 RPT#: [id number] DC DATE: STATUS: ADM IN [facility] [address] [place] [address] END OF REPORT
--- NOTE | 2020-02-16 18:05 | MORECARE ---
CASE MANAGEMENT DISCHARGE SUMMARY PATIENT: JAYESH PINEDO UNIT: [id number] ADM DATE: 02/09/20 AGE: 80 : 40 SEX: M ROOM/BED: D.7367 AUTHOR: JESSICA,DOC PHYSICIAN: REFERRING PHYSICIAN: JOSÉ ZAPATA MD DATE OF SERVICE: 02/16/20 Discharge Plan Patient Name: JAYESH PINEDO Facility: [facility]:[place] : 1940 Planned Disposition: Inpatient Rehab Facility Anticipated Discharge Date: 02/16/20 Discharge Date: Expected LOS: 7 Initial Reviewer: [email or web address] Initial Review Date: 02/09/2020 Generated: 02/16/20 7:04 pm Comments DCP- Discharge Planning Updated by [email or web address]: Luz Harris on 02/16/20 4:[address] CM contacted Vesta, with [facility] regarding possible admit. Information faxed, await CB. [facility] will be [facility] today [facility]. Patient's routine HD days are // @0640 @[facility]. While patient is in [facility], he will go to HD @[facility]. CM gave the nurse report to Torres, patient's nurse, #[phone]. Per Delores [facility], The van will transport patient around [phone]. Notified Kavitha Velazco of DC today to [facility], for HD arrangements. 1500: CM contacted patient's ex- Liliane Johnson, regarding acceptance to [facility] today. Made her aware that the patient will transport via van. Per Liliane Johnson, "I would like for him to stay for a few more days, in order to get stronger and see a urologist". CM made her aware that the admitting MD/Fish Farm Manager feels that the patient is ready for DC and that this is a good step forward for the patient. Also made her aware that NITRO[facility]CER[facility] SEPAR[facility] OPER[facility] does not have a urologist admissions rn at this time. DC IMM signed by patient. Per conversation with Dr. Schmidt, earlier, the palma can be DC'd and if needed, Rehab can re-catherize patient if urine retention occurs again. This was voiced to the patient's nurse. DCP- Discharge Planning Updated by [id number]: Luz Harris on 02/15/20 2:[address] CM contacted [facility], regarding HD unit and days. Labs have been ordered,but pended results. CM met with patient's Medical POA, Liliane Johnson ([phone]), regarding DC plans. Liliane states that the patient lives independently, alone. PCP: None at present. Pharmacy[facility], w/delivery. DME: nilda Crain, BSC, Shower Chair. POA states that the patient has become very debilitated, due to his poor kidney function. Discussed HHS, SNF, Rehab. POA states if patent requires Rehab, she prefers [facility], or a SNF. Patient Choice has been signed for [facility]. CM will assist with any DC needs PRN. DCPIA - Discharge Planning Initial Assessment Updated by [id number]: Luz Harris on 02/15/20 3:47 pm * Is the patient Alert and Oriented? Yes * PCP None at present * Pharmacy [facility] w/delivery * Preadmission Environment Home Alone * ADLs Independent * Equipment Cane Rolling Walker Shower Chair * Other Equipment * List name and contact numbers for known caregivers / representatives who currently or will assist patient after discharge: Liliane Braun (Medical POA-friend) [phone] * Verbal permission to speak to the caregivers and representatives has been obtained from the patient. N/A * Community resources currently utilized None * Please name any agencies selected above. [facility] (MICHELLE signed) * Additional services required to return to the preadmission environment? Yes * Can the patient safely return to the preadmission environment? No * Has this patient been hospitalized within the prior 30 days at any hospital? No Coverage Notice Reviewer: [id number] Denise Harris Notice Issued Date-Time: 02/15/2020 14:33 Notice Type: Patient Choice Letter Notice Delivered To: Other Relationship to Patient: Friend Radio Script Writer Name: Liliane Johnson Delivery Method: HAND - Hand Delivered Ariela Days: Prior Verbal Notification: Recipient Understood Notice: Yes Recipient Signature: Yes Med Rec Note Co-signed by Attending: Coverage Notice Comment: Patient choice for [facility] signed /delivered to friend (Liliane Johnson). Original to chart. Reviewer: [email or web address] Denise Harris Notice Issued Date-Time: 02/16/2020 17:41 Notice Type: IM Discharge Notice Notice Delivered To: Patient Relationship to Patient: Self Radio Script Writer Name: Jayesh Pinedo Delivery Method: HAND - Hand Delivered Ariela Days: Prior Verbal Notification: Recipient Understood Notice: Yes Recipient Signature: Yes Med Rec Note Co-signed by Attending: Coverage Notice Comment: DC IMM signed/provided to patient's DC packet. Original to chart. Last DP export: 02/16/20 4:57 pm Patient Name: JAYESH PINEDO Page [id number] at 1805 All edits/amendments must be made on the electronic document DICTATION DATE: 02/16/201803 LOCKSMITH APPRENTICE: JASMINE 02/16/201803 RPT#: [id number] DC DATE: STATUS: ADM IN [facility] [address] [place] [address] END OF REPORT
--- NOTE | 2020-02-16 18:15 | NUR ---
PT DISCHARGED HOME VIA STRETCHER WITH EMS. ENG CATH REMOVED. ALL VALUABLES REMOVED FROM ROOM. TELEMETRY REMOVED AND RETURNED.
--- NOTE | 2020-02-17 17:26 | OP ---
PATIENT NAME: BRAD PINEDO MEDICAL RECORD: [id number] :40 LOCATION:D. D.2127 ADMISSION DATE:02/09/20 SURGEON: ARCHIE VANEGAS MD DATE OF OPERATION: 02/15/2020 PREOPERATIVE DIAGNOSES: End-stage renal disease with non-maturing and difficult to cannulate left radiocephalic AV fistula and intolerance of peritoneal dialysis, status post laparoscopic implantation of PD catheter and open repair of umbilical hernia. PREOPERATIVE DIAGNOSIS: End-stage renal disease with non-maturing and difficult to cannulate left radiocephalic AV fistula and intolerance of peritoneal dialysis, status post laparoscopic implantation of PD catheter and open repair of umbilical hernia. OPERATION PERFORMED: Left arm fistulogram with balloon angioplasty of stenotic JA swing segment with 80% stenosis, dilated with 0% residual and also insertion of a 19-cm HemoSplit tunneled dialysis catheter with real time ultrasound guidance as well as fluoroscopy via the right internal jugular vein and also urinary bladder catheterization with drainage of about 1500 cc of urine. SURGEON: Archie Vanegas MD ANESTHESIA: TIVA per GRAIN SPOUTER and local 1% lidocaine without epinephrine. PREOPERATIVE NOTE: Mr. Pinedo is an 80-year-old gentleman with end-stage renal disease who had a fistula created some time ago, which now that it is needed is not functioning. It has not had a good augmentation and is difficult to cannulate. He was admitted to the hospital having "failed acute peritoneal dialysis and had a temporary Trialysis catheter inserted by Dr. Andres at [facility] and has been treated here with that for his uremia. His uremia is clearing and he needs long-term dialysis access. He is brought to the operating room at this time to remove his Trialysis and place a HemoSplit and also to perform a fistulogram and hopefully an intervention to salvage his fistula. DESCRIPTION OF PROCEDURE: Under sedation and monitoring per GRAIN SPOUTER, the patient was placed in supine position. He neck was examined with ultrasound and the right internal jugular vein was noted to be collapsed and was only with placing the patient in fairly steep Trendelenburg position that it became possible to do an internal jugular stick. He has had a Trialysis catheter inserted apparently via an external jugular vein and so it was not necessary to go over a guidewire, but instead I made an incision at the base of the neck and through that incision using ultrasound guidance, I placed a micropuncture needle directly into the internal jugular vein. An 0.018 guidewire followed under fluoroscopy and a catheter and guidewire exchange was performed and then serial dilators were passed and lastly a dilator peel-away sheath. I chose a 19-cm long HemoSplit, made an incision beneath the clavicle and pulled the catheter from there through a subcutaneous tunnel up to the cervical wound where it was then inserted and the peel-away sheath removed. The arterial and venous limbs were oriented appropriately, and under fluoroscopy, the catheter was in good position with its tip deep in the right atrium. There were no kinks or any other problem with the catheter entry. Both lumens of the catheter were then accessed and aspirated, free return of blood from each was confirmed. They were then flushed with saline and then heparin locked, clamped and capped. The cervical incision was closed with OPERATIVE REPORT [id number] BRAD PINEDO interrupted inverted 3-0 Vicryl and sealed with Dermabond glue and dressed with Maxorb Ag, Tegaderm, and Cavilon skin prep. A chlorhexidine BioPatch was placed on the catheter entry site and that was dressed further with an adhesive plastic sterile CVL dressing. The Trialysis catheter was to be removed by the procurement cost coordinator when not needed for IV drug administration after the patient's drapes were removed. I then turned to the patient's left arm, which was prepped and draped in a sterile manner. I first examined him with Duplex ultrasound and noted that the radial artery was very large having dilated well since the creation of his fistula. The problem appears to be a stenotic JA segment. I accessed the fistula using ultrasound guidance in a retrograde direction with micropuncture needle and some mid forearm level. An 0.018 wire was advanced and then the micropuncture catheter and contrast was injected with digital compression of the venous outflow in order to get retrograde images of the JA and arterial anastomosis. The JA was beaded and was stenotic. The arterial anastomosis was mildly stenotic as well. Additional contrast injections were performed, which demonstrated primary runoff to the right atrium via the basilic vein in the left arm, although the cephalic vein is patent and there is runoff all the way to the central veins through the cephalic arch without any evidence of intervening stenoses. An 0.035 guidewire was then passed distally through the JA segment and across the arterial anastomosis and back up the radial artery. I exchanged the small catheter for 7-Persian introducer sheath and then used a 6-mm diameter Bard U-verse balloon 6 x 40 to dilate the JA segment and arterial anastomoses. There were stenoses which would not efface and it was necessary to dilate this segment again with a high pressure Conquest balloon and still this required 28 atmospheres to the face the areas of stenosis. When that had been done and the balloon removed and contrast injected, there was excellent improvement in the fistula and there is rather dramatic improvement in the palpable pulsation and thrill. I removed the sheaths and sutured the entry site with a [id number] 4-0 Prolene. Hemostasis was obtained with a period of gentle direct pressure and a dressing of Ultrafoam, Tegaderm, and Cavilon skin prep was applied. The patient's drapes were removed and I examined his abdomen and noted it was ecchymotic in the lower half, I assume this is from the umbilical hernia repair last week, the week before. The urinary bladder was distended up over the level of the umbilicus. This was promptly drained with a Calderon catheter and about 1500 cc of urine and the catheter was left indwelling. The patient was awakened and taken to the recovery room. Blood loss during this operation was insignificant and unreplaced. Sponges, instruments, and needles were accounted for. No drain was used and no surgical specimen was submitted for histopathology; however, a specimen of urine was submitted for culture and another specimen for urinalysis. The urine was rather dark an in color, certainly not bloody. TRANSINT:[id number] Voice Confirmation ID: [id number] DOCUMENT ID: [id number] OPERATIVE REPORT [id number] BRAD PINEDO JAMES MD at 1726 CC: JAKE ANDRES MD and JOSÉ ZAPATA MD [id number] DICTATION DATE: 02/15/20 1516 HEEL BREASTER: 02/15/20 8634 DIS IN 02/16/20 [place] [id number] [place] [address]
== END 2020-02-16 18:16 | DRG 252 ==
LOC: D.ICU 15:29 → D.M2 15:29
PROVIDERS: Internal Medicine Nephrology; Surgery; ADMIT Internal Medicine Nephrology; ATTEND Internal Medicine Nephrology
PROC: 5A1D70Z Performance of Urinary Filtration, Intermittent, Less than 6 Hours Per Day (ICD-10-PCS; 2020-02-10)
PROC: 0JH63XZ Insertion of Tunneled Vascular Access Device into Chest Subcutaneous Tissue and Fascia, Percutaneous Approach (ICD-10-PCS; 2020-02-15)
PROC: 02H633Z Insertion of Infusion Device into Right Atrium, Percutaneous Approach (ICD-10-PCS; 2020-02-15)
PROC: B548ZZA Ultrasonography of Superior Vena Cava, Guidance (ICD-10-PCS; 2020-02-15)
PROC: B51W1ZZ Fluoroscopy of Dialysis Shunt/Fistula using Low Osmolar Contrast (ICD-10-PCS; 2020-02-15)
PROC: 03WY3JZ Revision of Synthetic Substitute in Upper Artery, Percutaneous Approach (ICD-10-PCS; principal; 2020-02-15 10:30)
DX: T82.898A Other specified complication of vascular prosthetic devices, implants and grafts, initial encounter (principal); N18.6 End stage renal disease; I13.2 Hypertensive heart and chronic kidney disease with heart failure and with stage 5 chronic kidney disease, or end stage renal disease; I50.20 Unspecified systolic (congestive) heart failure; E87.5 Hyperkalemia; I25.10 Atherosclerotic heart disease of native coronary artery without angina pectoris; D63.1 Anemia in chronic kidney disease; E83.39 Other disorders of phosphorus metabolism; H40.9 Unspecified glaucoma; Z99.2 Dependence on renal dialysis; R41.82 Altered mental status, unspecified; Y84.9 Medical procedure, unspecified as the cause of abnormal reaction of the patient, or of later complication, without mention of misadventure at the time of the procedure; Z86.73 Personal history of transient ischemic attack (TIA), and cerebral infarction without residual deficits